=== PATIENT | male | born 1950 | race Caucasian/White ===

== ENCOUNTER 2020-07-15 09:25 | Inpatient (IN) | payer OTHER, MEDICARE, SELFPAY ==
[2020-07-15] VITALS (16 sets, daily range): BP systolic 151–198; BP diastolic 53–77; PULSE 52–69; RESP 11–24; TEMP 36.3–36.5; O2SAT 96–100; BMI 26.2
--- NOTE | ~2020-07-15 | CT_ITS ---
EXAMINATION: CTA brain carotid EXAM DATE: 07/15/2020 11:04 INDICATION: Syncope. Vertigo. Intermittent dizziness. Symptoms for the past week. TECHNIQUE: Noncontrast head CT. Spiral CTA of the carotid arteries was performed with intravenous i njection 100 cc of Omnipaque 350. Axial, coronal, sagittal reformatted images reviewed. Additional r eformatted images created on dedicated 3-D workstation. NASCET comparable standard used to assess th e degree of arterial stenosis. Spiral CT angiogram cerebral arteries performed with the same intrave nous injection of contrast. Source images of the brain CTA transferred to dedicated workstation for 3 -D rotational image creation. Coronal, sagittal maximum intensity pixel images also reviewed. The d ose-length product (DLP) for this examination was 1867.51 mGy-cm. The exposure was tailored accordi ng to patient size, and iterative reconstruction (ASIR) was used as additional dose reduction techniq ue. There is no prior study for comparison. FINDINGS: There is mild to moderate bilateral carotid bulb plaque, accommodated by the bulbs nodule d ilation, 0% stenosis bilaterally. The left vertebral artery is dominant There is right-sided posterio r communicating artery dominant posterior cerebral artery. There is bilateral carotid siphon arterial sclerosis with short segment 50%. There is no carotid or vertebral basilar arterial dissection or f ibromuscular dysplasia. There are no cerebral artery aneurysms. There is symmetric cerebral artery ar borization. The sagittal, transverse and sigmoid sinuses enhance normally, no venous sinus thrombosis . Internal cerebral veins also enhance normally. There is no acute intraparenchymal hemorrhage. No evidence of intraparenchymal brain mass lesion. N o evidence of acute infarction. There is mild periventricular and subcortical hypodensity, nonspecifi c but probably related to small vessel ischemic disease. There is mild prominence of the sulci and ventricles related to cerebral atrophy. There is intracranial carotid arteriosclerosis. There is no mass effect or midline shift. There is no obstructive hydrocephalus suspected. There are no extra -axial collections. There are no calvarial acute fractures. Small to moderate-sized left maxillary sinus mucous retention cyst. IMPRESSION: 1. No acute findings. 2. Bilateral carotid bulb 0% stenosis. 3. Left carotid siphon 50% stenosis. 4. Mild age-related findings. Reviewed, dictated and finalized at location B. LAY OUT WORKER
--- NOTE | 2020-07-15 09:38 | ED.SYNCOPE ---
HPI - Syncope General Chief Complaint: Syncope Stated Complaint: syncope Time Seen by Provider: 07/15/20 09:37 History of Present Illness HPI narrative: 70 yo male presents to the ED for dizziness. He first began feelng dizzy last night. It is primarily with sudden head movement. Also made worse by standing. He had an episode of severe dizziness this morning and believes that that he briefly lost consciousness and fell to the ground. He has noted a swishing noise in his right ear at times. He has never had these symptoms before. Related Data Home Medications Medication Instructions Recorded Confirmed apixaban 5 mg tablet 5 mg PO BID 05/08/19 01/21/20 cholecalciferol (vitamin D3) 25 50 mcg PO DAILY cap 05/29/20 05/29/20 mcg (1,000 unit) capsule metoprolol tartrate 50 mg tablet 50 mg PO BID tablet 05/29/20 05/29/20 Allergies Allergy/AdvReac Type Severity Reaction Status Date / Time No Known Allergies Allergy Mild Verified 07/15/20 10:14 Review of Systems Review of Systems: All systems reviewed & are unremarkable except as noted in HPI and below Constitutional: Constitutional: Denies chills and Denies fever(s) Eyes: Comments: occasional kaleidoscope vision ENT: Reports dizziness and Denies sore throat Cardiovascular: Cardiovascular: Denies chest pain Respiratory: Respiratory: Denies dyspnea Gastrointestinal: Gastrointestinal: Denies abdominal pain and Denies nausea Genitourinary: Genitourinary: Reports no additional male genitourinary complaints Musculoskeletal: Musculoskeletal: Reports no additional musculoskeletal complaints Neurologic: Denies confusion, Reports dizziness, Reports syncope and Denies weakness PMFSH Past Medical History Medical History Chronic kidney disease, stage 3 (moderate) Metabolic syndrome Paroxysmal atrial fibrillation Family History Family History Grandparent Diabetes mellitus Family history of coronary artery disease Mother Family history of glaucoma Hypertension Sibling Hypertension Family history of lymphoma Father Family history of coronary artery disease Family history of cardiovascular disease Social History Social History Smoking status: Heavy tobacco smoker Alcohol intake: current Exam Const: General: no acute distress and alert Orientation/consciousness: patient oriented x3 HENMT: Ears: Abnormal EAC present cerumen impaction bilateral Eyes: Conjunctivae: conjunctivae normal Pupils: Equal, round and reactive pupils present EOM: EOMs intact bilaterally Neck: Neck: normal visual inspection Other: no bruit Chest: Chest palpation & inspection: normal inspection of the chest and no tenderness Resp: Effort & Inspection: normal respiratory effort Auscultation: clear to auscultation bilaterally Cardio: Rate: regular rate Rhythm: regular rhythm GI: Inspection: non-distended Skin: General skin exam: normal color Neuro: General: patient oriented x3, moves all extremities, no focal motor deficits and CN's II-XI intact bilaterally Cranial nerves: Yes Nystagmus present horizontal fast component to the right (minimal) Speech: normal speech Other: Unstable upon standing Extrem: General: normal to inspection Psych: Appearance: grossly normal and well kempt Mental Status: mental status grossly normal Affect: normal affect Attitude: cooperative Thought content: Yes Normal thought content present Course Vital Signs Vital signs: Vital Signs Temperature 36.3 C L 07/15/20 09:35 Pulse Rate 69 07/15/20 09:35 Respiratory Rate 16 07/15/20 09:35 Blood Pressure 170/57 H 07/15/20 09:35 Pulse Oximetry 100 07/15/20 09:35 Temperature 36.3 C L 07/15/20 09:35 Pulse Rate 53 L 07/15/20 14:02 Respiratory Rate 21 H 07/15/20 14:02 Blood Pressure 187/77 H
--- NOTE | 2020-07-15 09:50 | ECG_ITS ---
Measurements Intervals [place] Rate: 61 P: 114 ME: 154 QRS: -41 QRSD: 137 T: 33 QT: 413 QTc: 418 Interpretive Statements SINUS RHYTHM LEFT AXIS DEVIATION RIGHT BUNDLE BRANCH BLOCK BASELINE ARTIFACT- I, III, AVR, AVL, AVF, V1-V6 ABNORMAL ECG Electronically Signed On 07-15-2020 10:13:05 NATURAL RESOURCE OFFICER by Amadou Longoria D.O.
[2020-07-15 10:21] LABS: Basophils Absolute Auto 0.1 K/mm3 (0.0-0.1); Basophils Percent Auto 0.8 % (0.2-1.2); Eosinophils Absolute Auto 0.5 K/mm3 (0-0.3); Eosinophils Percent Auto 3.4 % (0-4.4); Hematocrit 41.7 % (42.0-52.0); Hemoglobin 14.6 g/dL (14.0-18.0); Immature Granulocyte Absolute 0.09 K/mm3 (0.00-0.031); Immature Granulocyte Percent A 0.6 % (0-0.5); Immature Platelet Fraction Pct 16.5 % (0.9-11.2); Lymphocytes Absolute Auto 2.54 K/mm3 (0.9-3.2); Lymphocytes Percent Auto 17.2 % (18.3-44.2); Mean Corpuscular Hemoglobin 31.1 pg (26-34); Mean Corpuscular Volume 88.7 fl (80-100); Mean Platelet Volume 13.4 fl (7.4-10.4); Monocytes Absolute Auto 1.2 K/mm3 (0.1-0.6); Monocytes Percent Auto 7.8 % (2.6-8.5); Neutrophils Absolute Auto 10.4 K/mm3 (1.3-6.7); Neutrophils Percent Auto 70.2 % (45.5-73.1); Platelet Count Result 221 k/mm3 (150-375); Red Cell Distribution Width 13.9 % (11.5-14.5); White Blood Count 14.8 K/mm3 (4.5-10.0)
[2020-07-15 10:29] LABS: INR 1.1; Prothrombin Time 14.3 Seconds (11.1-14.7)
[2020-07-15 10:30] LABS: Partial Thromboplastin Time 32.4 SECONDS (22.3-36.8)
[2020-07-15 10:37] LABS: Alanine Aminotransferase 48 U/L (4-50); Albumin Level 3.7 g/dL (3.5-5.1); Alkaline Phosphatase 76 U/L (38-126); Anion Gap 7 mmol/L (8-16); Aspartate Amino Transferase 40 U/L (17-59); Bilirubin,Total 0.5 mg/dL (0.2-1.3); Blood Urea Nitrogen 12 mg/dL (9-20); Carbon Dioxide 30 mmol/L (22-30); Chloride 100 mmol/L (98-107); Estimated CRCL calculation 61 ml/min; Estimated Glomerular Filt Rate > 60; Glucose 203 mg/dL (75-110); Potassium 3.6 mmol/L (3.4-5.0); Sodium 137 mmol/L (137-145)
--- NOTE | 2020-07-15 10:38 | PC.NURSE ---
Asked pt for urine sample, pt stated he would give me one as soon as he could
[2020-07-15] MEDS: MECLIZINE HCL 25 MG TABLET PO ×2 (11:10→12:31)
[2020-07-15] MEDS: SODIUM CHLORIDE 0.9% IV 1,000 ML 999 ML IV CONT (12:31)
[2020-07-15 12:36] LABS: Add Urine Microscopic? NO; Appearance Urine Clear (Clear); Bilirubin Urine Negative (Negative); Blood Urine Negative (Negative); Color Urine Yellow (Yellow); Glucose Urine UA Negative (Negative); Ketones Urine Negative (Negative); Leukocyte Esterase Ur Negative LEU/UL (Negative); Nitrate Urine Negative (Negative); Protein Urine Negative (Negative); Urobilinogen Urine Negative mg/dL (<2.0)
[2020-07-15] MEDS: AMOXICILLIN/CLAVULANATE K 875-125 MG TAB 1 TABLET PO ×2 (14:51→20:05)
--- NOTE | 2020-07-15 16:20 | ADMGEN ---
This patient, Luis Baltazar, was admitted to Medical Room 345-01. Patient/family oriented to hospital policies and general routines including ID bracelet, bed and alarms, visiting hours, pain management, procedures, bathroom and other care routines, personal items, smoking policy, room service/diet, and visiting hours. Information on how to activate the Rapid Response Team has been discussed. Patient/Family are encouraged to report perceived risks to care and to ask questions if they do not understand what they are told or what they should do.
[2020-07-15 21:59] LABS: Glucose Point of Care 149 (65-105)
[2020-07-16] VITALS (11 sets, daily range): BP systolic 160–184; BP diastolic 56–63; PULSE 55–69; RESP 18; TEMP 35.9–36.4; O2SAT 96–98
--- NOTE | 2020-07-16 00:42 | ECHO_ITS ---
Patient Info Name: Luis Baltazar Age: 70 years : 1950 Gender: Male Ht: 70 in Wt: 183 lbs BSA: 2.04 m2 HR: 64 bpm BP: 160 / 56 mmHg Heart Rhythm: Sinus Rhythm Technical Quality: Poor Exam Date: 07/16/2020 10:50 AM Exam Location: [facility] Pulmonary Exam Room: 345 Patient Status: Inpatient Admit Date: 07/15/2020 Staff Ordering Physician: Mary Becerra PA-C Linux System Administrator: Leonor Araujo RDCS Attending Provider: Ceci Zhu MD Exam Type: CA echo dop color flow w con Study Info Indications - syncope Complete two-dimensional, color flow and Doppler transthoracic echocardiogram is performed with contrast to opacify the left ventricle and to improve the deliniation of the left ventricle endocardial borders. Contrast/Agitated Saline Contrast/Ag. Saline: Definity Amount: 1.00 ml Administered By: aCrlos Cavazos RN Existing IV Access: Yes Reason for Poor Study: patient body habitus Summary 1. Technically difficult study with limited views. 2. Left ventricular systolic function is normal, estimated at 60-65%. 3. There is mildly increased left ventricular wall thickness. 4. The left ventricular diastolic function is grade II diastolic dysfunction. 5. Left atrial chamber dimension is mildly enlarged. 6. There is mild aortic valve stenosis with a peak velocity of 183.00 cm/s, mean gradient of 7 mmHg, and aortic valve area of 1.90 cm2. 7. The aortic valve is not well visualized. 8. There is trace tricuspid valve regurgitation. 9. No pulmonary hypertension, estimated pulmonary arterial systolic pressure is 25 mmHg. Left Ventricle Technically difficult study with limited views. Left ventricular chamber dimension is normal. Left ventricular systolic function is normal, estimated at 60-65%. There is mildly increased left ventricular wall thickness. The left ventricular diastolic function is grade II diastolic dysfunction. Right Ventricle Right ventricular chamber dimension is normal. Right ventricular systolic function is normal. Left Atria Left atrial chamber dimension is mildly enlarged. Right Atria Right atrial chamber dimension is normal. Aortic Valve The aortic valve is not well visualized. There is mild aortic valve stenosis with a peak velocity of 183.00 cm/s, mean gradient of 7 mmHg, and aortic valve area of 1.90 cm2. There is no aortic valve regurgitation. There is mild aortic valve calcification. Pulmonic Valve The pulmonic valve is not well visualized. Mitral Valve The mitral valve has thickened leaflets. There is trace mitral valve regurgitation. The mitral valve annulus is mildly calcified. Tricuspid Valve The tricuspid valve leaflets are normal. There is trace tricuspid valve regurgitation. No pulmonary hypertension, estimated pulmonary arterial systolic pressure is 25 mmHg. Pericardium/Pleural The pericardium appears not well visualized. Inferior Vena Cava Normal inferior vena cava with >50% collapse upon inspiration consistent with normal right atrial pressure, 5 mmHg. Aorta The aortic root size at the sinus of Valsalva is normal. There is mild aortic atherosclerosis. Left Ventricular Outflow Tract Name Value Normal LVOT 2D
[2020-07-16 07:12] LABS: Glucose Point of Care 133 (65-105)
[2020-07-16] MEDS: METOPROLOL TARTRATE 50 MG TAB PO (08:46)
[2020-07-16] MEDS: OMEGA 3 POLYUNSAT FATTY ACIDS 1 GM CAP PO (08:46)
[2020-07-16] MEDS: CHOLECALCIFEROL 1,000 UNITS TABLET 2000 UNITS PO (08:46)
[2020-07-16] MEDS: OPTI-GEN TAB 1 TABLET PO (08:46)
[2020-07-16] MEDS: ATORVASTATIN 10 MG TABLET BY MOUTH (08:48)
[2020-07-16] MEDS: hydroCHLOROthiazide 12.5 MG CAPSULE PO (08:48)
[2020-07-16] MEDS: lisinopriL 20 MG TABLET PO (08:48)
[2020-07-16] MEDS: AMOXICILLIN/CLAVULANATE K 875-125 MG TAB 1 TABLET PO (08:48)
[2020-07-16] MEDS: APIXABAN 5 MG TABLET PO (08:48)
[2020-07-16] MEDS: CARBAMIDE PEROXIDE 6.5% OT SOLN 15 ML BTL 5 DROP EACH EAR (08:49)
[2020-07-16] MEDS: PERFLUTREN LIPID MICROSPHERES 1.5 ML VIAL DILUTED TO 10 ML TOTAL VOLUME IV PUSH (11:22)
--- NOTE | 2020-07-16 11:53 | PC.NURSE ---
On 07/16/20, the student, Gina Cooper ], provided care and completed [employer] documentation on this patient. I have reviewed the student's documentation and agree with the findings.
--- NOTE | 2020-07-16 13:37 | PM.SD2 ---
Same Day Admit/Disch: HPI History of Present Illness Chief complaint: Vertigo Narrative: Luis Baltazar is a 70 year old male admitted with dizziness and syncope. Pt walked outside with his coffee and fell outside blackouted for a few seconds. Denies any seizure activity or focal weakness, chest pain, sob or abdominal pains at that time. Pt denies sob cough or headaches. Pt had ct head which was negative, pt has history of af and was watched on telemetry overnight. Pt felt his head was spinning, and wobbly when walking yesterday, pt was found to have bilateral ear wax in the ED which was washed out yesterday. Pt states his dizziness is better today. Pt seen by neurology who recommends MRI brain which can be done as outpatient. I recommend patient sees ENT as outpatient for vertigo. PMFSH Past Medical History Medical History Chronic kidney disease, stage 3 (moderate) Metabolic syndrome Paroxysmal atrial fibrillation Family History Family History Grandparent Diabetes mellitus Family history of coronary artery disease Mother Family history of glaucoma Hypertension Sibling Hypertension Family history of lymphoma Father Family history of coronary artery disease Family history of cardiovascular disease Social History Social History Smoking packs per day: 0.5 Smoking cigarettes per day: 10.0 Years smoked: 40 Smoking pack-years: 20.00 Smoking status: Current every day smoker Tobacco type: cigarettes Alcohol intake: former Substance use: never Gender identity (if verbalized by the patient): Male Spiritual care concerns: No Same Day Admit/Disch: Med Pre-admit Medications Home Medications Medication Instructions Recorded Confirmed Type apixaban 5 mg tablet 5 mg PO BID 05/08/19 07/15/20 History doxazosin 4 mg tablet 4 mg PO DAILY #90 tablet 02/06/20 07/15/20 Rx metformin 1,000 mg tablet See Rx Instructions .ROUTE 04/24/20 07/15/20 Rx .COMPLEX #90 tablet lisinopril 20 1 tablet PO DAILY #90 tablet 05/07/20 07/15/20 Rx mg-hydrochlorothiazide 12.5 mg tablet cholecalciferol (vitamin D3) 25 50 mcg PO DAILY cap 05/29/20 07/15/20 History mcg (1,000 unit) capsule metoprolol tartrate 50 mg tablet 50 mg PO BID tablet 05/29/20 07/15/20 History atorvastatin 10 mg tablet See Rx Instructions .ROUTE 06/30/20 07/15/20 Rx .COMPLEX #90 tablet amoxicillin-pot clavulanate 1 tablet PO Q12H #20 tablet 07/15/20 Rx [Augmentin] drujonibpdwn-xfuyzety-mvhizm 1 tablet PO DAILY 07/15/20 07/15/20 History [Centrum Silver] omega 4-zbs-rip-fish oil [Fish Oil] 1 cap PO DAILY 07/15/20 07/15/20 History Exam Const: General: well developed Nutritional Appearance: well nourished HENMT: Head: normocephalic Eyes: General: appearance normal, both eyes and all related structures Pupils: Equal, round and reactive pupils present Neck: Neck: supple Chest: Chest palpation & inspection: normal inspection of the chest Resp: Effort & Inspection: normal respiratory effort Auscultation: clear to auscultation bilaterally Cardio: Jugular venous distension: no JVD Rhythm: regular rhythm Heart sounds: S1 normal heart sound present and S2 normal heart sound present GI: Inspection: normal to inspection GI Palp: No abdominal tenderness, Yes Soft to palpation and No Tenderness to palpation present (GI) Auscultation: normal bowel sounds : General: Yes no CVA tenderness Back/Spine/Pelvis: Back: no CVA tenderness Skin: General skin exam: normal color and dry skin Neuro: Cranial nerves: Yes CN's II-XII intact bilaterally and Yes Equal, round and reactive pupils present Cognition (Neuro): normal cognition Speech: normal speech Motor exam (neuro): 5/5 motor strength present throughout Extrem: General: normal to inspection Psych: Appe
--- NOTE | 2020-07-16 14:37 | WPDNEURCNPN ---
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 considering history of atrial fibrillation patient was admitted and evaluated with the general physical exam and neurological examination at this stage is nonfocal otherwise he is already taking the medications accordingly and will be discharged with instruction to return to the office for the follow-up Consult date: 07/16/20 Time Seen: 11:00 HPI: Luis Baltazar is a 70 year old male admitted to the hospital for the complaints of syncopal episode with dizziness reportedly patient walked outside with his coffee and fell and back out for few sec no seizure activity was noted and subsequently no focal weakness was documented at that particular time is head was spinning he was reportedly wobbly day before when walking and has had bilateral ear wax taken out in the emergency room, does have ongoing history of chronic state kidney disease stage 3 with metabolic syndrome and paroxysmal atrial fibrillation, is smoking cigarettes per day 10 with years smoked 40 current everyday smoker former alcohol drinker, and medications include apixaban 5 mg twice a day metformin 1000 daily lisinopril 20 mg daily with hydrochlorothiazide 12.5 mg in addition to atorvastatin 10 mg daily and Augmentin 1 tablet every 12 hours, head neck CTA left carotid siphon 50% stenosis but bilateral carotid bulbs 0% stenosis and routine lab with mild leukocytosis Review of Systems Review of Systems: All systems reviewed & are unremarkable except as noted in HPI and below PMFSH Past Medical History Medical History Chronic kidney disease, stage 3 (moderate) Metabolic syndrome Paroxysmal atrial fibrillation Family History Family History Grandparent Diabetes mellitus Family history of coronary artery disease Mother Family history of glaucoma Hypertension Sibling Hypertension Family history of lymphoma Father Family history of coronary artery disease Family history of cardiovascular disease Social History Social History Smoking packs per day: 0.5 Smoking cigarettes per day: 10.0 Years smoked: 40 Smoking pack-years: 20.00 Smoking status: Current every day smoker Tobacco type: cigarettes Alcohol intake: former Substance use: never Gender identity (if verbalized by the patient): Male Spiritual care concerns: No Meds Home Medications and Allergies Home Medications Medication Instructions Recorded Confirmed Type apixaban 5 mg tablet 5 mg PO BID 05/08/19 07/15/20 History doxazosin 4 mg tablet 4 mg PO DAILY #90 tablet 02/06/20 07/15/20 Rx metformin 1,000 mg tablet See Rx Instructions .ROUTE 04/24/20 07/15/20 Rx .COMPLEX #90 tablet lisinopril 20 1 tablet PO DAILY #90 tablet 05/07/20 07/15/20 Rx mg-hydrochlorothiazide 12.5 mg tablet cholecalciferol (vitamin D3) 25 50 mcg PO DAILY cap 05/29/20 07/15/20 History mcg (1,000 unit) capsule metoprolol tartrate 50 mg tablet 50 mg PO BID tablet 05/29/20 07/15/20 History atorvastatin 10 mg tablet See Rx Instructions .ROUTE 06/30/20 07/15/20 Rx .COMPLEX #90 tablet amoxicillin-pot clavulanate 1 tablet PO Q12H #20 tablet 07/15/20 Rx [Augmentin] aiaxgwtwznel-litsxvgr-xphgiu 1 tablet PO DAILY 07/15/20 07/15/20 History omega 4-yio-dox-fish oil [Fish Oil] 1 cap PO DAILY 07/15/20 07/15/20 History amoxicillin-pot clavulanate 1 tablet PO Q12HR #20 tablet 07/16/20 Rx [Augmentin] carbamid
== END 2020-07-16 15:03 | disposition home or self-care (01) | DRG 149 ==
LOC: ANHED 14:37 → ANH3MED 15:47
PROVIDERS: Admitting Provider Family Medicine; Emergency Provider Emergency Medicine; PCP Family Medicine; Visit Provider Family Medicine
DX: R42 Dizziness and giddiness (principal); E11.22 Type 2 diabetes mellitus with diabetic chronic kidney disease; N18.30 Chronic kidney disease, stage 3 unspecified; E88.81 Metabolic syndrome and other insulin resistance; I48.0 Paroxysmal atrial fibrillation; R55 Syncope and collapse; H66.90 Otitis media, unspecified, unspecified ear; H60.90 Unspecified otitis externa, unspecified ear; H61.23 Impacted cerumen, bilateral; F17.210 Nicotine dependence, cigarettes, uncomplicated; Z79.01 Long term (current) use of anticoagulants; Z79.899 Other long term (current) drug therapy
CPT/HCPCS: 36415; 70496; 70498; 80053; 81003; 82948; 85025; 85055; 85610; 85730; 93005; 96361; 96374; 99285; A9270; C8929; G0378; J7030; Q9957; Q9967

== ENCOUNTER 2020-07-23 08:33 | Outpatient (CLI) | payer OTHER, SELFPAY | END 2020-07-23 08:34 | disposition home or self-care (01) | LOC: ANHCOVIDVC 08:33 | PROVIDERS: PCP Family Medicine | DX: Z23 Encounter for immunization (principal) | CPT/HCPCS: 0001A; 91300 ==

== ENCOUNTER 2020-07-25 06:34 | Outpatient (CLI) | payer OTHER, SELFPAY ==
--- NOTE | ~2020-07-25 | MR_ITS ---
EXAMINATION: MR brain/brain stem wo con DATE: 07/25/2020 07:17 INDICATION: Dizziness. TECHNIQUE: Magnetic resonance imaging (MRI) of the brain and brainstem was performed without intraven ous contrast. Sequences included sagittal T1-weighted FSE, axial diffusion-weighted FS EPI, and axial T2*-weighted GRE. The patient refused additional imaging. Apparent diffusion coefficient (ADC) maps were created. COMPARISON: Head CTA 07/15/2020 FINDINGS: There is no intracranial hemorrhage, acute infarction, or abnormal intracranial mass lesion . There are scattered areas of nonspecific increased T2-weighted signal intensity in the cerebral whi te matter. The ventricles are normal in size. There is a mucous retention cyst in left maxillary sinu s. There is a small right mastoid effusion. IMPRESSION: 1. Mild nonspecific cerebral white matter disease, which likely represents chronic small vessel ische aamir disease. Reviewed, dictated and finalized at location A. BUILDER HELPER IMPRESSION: 1. 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
== END 2020-07-25 06:35 | disposition home or self-care (01) ==
PROVIDERS: PCP Family Medicine; Visit Provider Psychiatry & Neurology Neurology
DX: R42 Dizziness and giddiness (principal); R93.0 Abnormal findings on diagnostic imaging of skull and head, not elsewhere classified
CPT/HCPCS: 70551

== ENCOUNTER 2020-08-04 12:27 | Outpatient (RCR) | payer OTHER, SELFPAY ==
--- NOTE | 2020-08-04 13:26 | PTOPEVAL ---
PHYSICAL THERAPY EVALUATION AND PLAN OF CARE 08-04-20 Thank you for referring Luis Baltazar to [facility], for the diagnosis of vertigo.? Luis has improved and has not had any dizziness for the past 10 days. The evaluation was completed and education was provided. He will call if he has any additional questions, or if dizziness returns and he needs treatment, to call for appointment. The plan of care is for? 0-2 x/week for 4 weeks. Please review, sign, date and return this plan of care [facility]. I agree with and certify that the following plan of care is medically necessary. Referring Physician Date Referring Provider: Hiren Sethi MD *PT Outpatient Evaluation Document 08/04/20 12:30 SONIA (Rec: 08/04/20 13:26 SONIA [id number]) Past Medical History Source of Past Medical History Recalled from Previous Visit, Confirmed with Patient/Family Neurological History Hx Neurological Disorders No Significant History Cardiovascular History Hx Atrial Fibrillation Yes Hx Cardiac Surgery Yes: ablation. 2014 Hx Hypercholesterolemia Yes: meds Hx Hypertension Yes: meds Respiratory History Hx Other Respiratory Disorders Yes: SMOKER; sinus drainage- seasonal allergies Gastrointestinal History Hx Cholecystectomy Yes: 1985 Genitourinary History Hx Renal Disease Yes: STAGE III Musculoskeletal History Hx Arthritis Yes: neck and back Hx Orthopedic Surgery Yes: R ankle ORIF Hx Other Musculoskeletal Disorders Yes: R knee pain Hematological History Hx Hematological Disorders No Significant History Endocrine History Hx Diabetes Yes: meds HEENT History Hx HEENT Disorders No Significant History Integumentary History Hx Skin Disorders No Significant History Reproductive History Hx Reproductive Disorders No Significant History Psychosocial History Hx Psychiatric Disorders No Significant History Pain History History of Any Previous or Ongoing No Significant History Instance of Pain Anesthesia History Hx Anesthesia Reactions No Significant History Evaluation Information Problem Diagnosis vertigo/dizziness Onset 07-16-20 Prior Level of Function Activity Level (Last 3 Months) 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
--- NOTE | 2020-09-15 13:45 | PCPTNOTE ---
PHYSICAL THERAPY DISCHARGE 09-15-20 Attending Provider: Hiren Sethi MD Patient:Luis Baltazar Date of :1950 Luis has not returned for any further treatments since the PT evaluation on 08/04/2020, for the diagnosis of dizziness; therefore he will be discharged at this time. Thank you for referring Mr. Baltazar to [facility]. Please review, sign, date and return this discharge summary [facility]. I have been updated about the patient's current status and I agree with discharge from the above service at this time. Referring Physician Date
== END 2020-09-16 09:02 | disposition home or self-care (01) ==
LOC: ANHPT 12:27
PROVIDERS: PCP Family Medicine; Referring Provider Otolaryngology; Visit Provider Otolaryngology
DX: R42 Dizziness and giddiness (principal); H61.22 Impacted cerumen, left ear
CPT/HCPCS: 97161

== ENCOUNTER 2020-08-13 08:01 | Outpatient (CLI) | payer OTHER, SELFPAY | END 2020-08-13 08:02 | disposition home or self-care (01) | LOC: ANHCOVIDVC 08:01 | PROVIDERS: PCP Family Medicine | DX: Z23 Encounter for immunization (principal) | CPT/HCPCS: 0002A; 91300 ==

== ENCOUNTER 2021-04-27 10:20 | Emergency (ER) | payer OTHER, SELFPAY ==
--- NOTE | ~2021-04-27 | XR_ITS ---
EXAMINATION: XR chest 2V DATE: 04/27/2021 11:15 INDICATION: Cough TECHNIQUE: PA and lateral views of the chest were obtained. COMPARISON: Chest radiograph dated 01/25/2018 FINDINGS: Right middle lobe opacity which could represent atelectasis or pneumonia. Left lung is now clear. No pulmonary edema, pleural effusion or pneumothorax. Arch size is normal. Mild thoracic spondylosis. IMPRESSION: 1. Right middle lobe opacity suspicious for pneumonia with differential including atelectasis. Reviewed, dictated and finalized at location B. ICAL MANAGER IMPRESSION: 1. Right middle lobe opacity suspicious for pneumonia with differential includi ng atelectasis.
[2021-04-27 10:38] VITALS: BP 181/55; PULSE 75; RESP 18; TEMP 36.1; O2SAT 96
--- NOTE | 2021-04-27 11:12 | ED.URI ---
HPI - URI/Sore Throat General Chief Complaint: Upper Respiratory Infection Stated Complaint: SINUS CONGESTION/DRAINAGE/COUGH Time Seen by Provider: 04/27/21 11:05 Source: patient, RN notes reviewed and old records reviewed Mode of arrival: ambulatory Limitations: no limitations History of Present Illness HPI Narrative: 71-year-old male who presents to [facility] with complaints of cough, nasal drainage and is unable to hear from his right ear for the past3-4 days. Patient reports that he had similar symptoms about a month ago which seemed to resolve. Patient reports that he has not taken anything OTC for his symptoms states he is afraid to take something that might interact with his medications. Patient states that his nasal drainage is clear and when he coughs he does bring up some white mucous at times. Patient denies any known fevers, chills or sweats denies any body aches has had his COVid vaccinations. MD elicited complaint: cough, rhinorrhea and other (Right ear decreased hearing) Related Data Home Medications Medication Instructions Recorded Confirmed apixaban 5 mg tablet 5 mg PO BID 05/08/19 04/27/21 cholecalciferol (vitamin D3) 25 50 mcg PO DAILY cap 05/29/20 04/27/21 mcg (1,000 unit) capsule metoprolol tartrate 50 mg tablet 50 mg PO BID tablet 05/29/20 04/27/21 cegsioektvow-avmferwa-sjbaho 1 tablet PO DAILY 07/15/20 04/27/21 omega 7-oac-ubr-fish oil [Fish Oil] 1 cap PO DAILY 07/15/20 04/27/21 Allergies Allergy/AdvReac Type Severity Reaction Status Date / Time No Known Allergies Allergy Mild Verified 02/16/21 10:06 Review of Systems Review of Systems: CONSTITUTIONAL: Denies known fever, chills, or sweats. EYES: Denies visual changes, redness, or discharge. ENT: Positive for rhinorrhea, congestion,no sore throat,right ear otalgia. CARDIOVASCULAR: Denies chest pain, palpitations, or edema. RESPIRATORY: Positive for cough reports dyspnea with cough or exertion, no tachypnea SAO2 96% on rick air GASTROINTESTINAL: Denies abdominal pain, nausea, vomiting, or diarrhea. GENITOURINARY: Denies dysuria or hematuria. SKIN: Denies rash or itching. MUSCULOSKELETAL: reports arthritis with some chronic neck and back discomfort,no joint pain, no body aches NEUROLOGIC: Denies headache, numbness, or weakness. PSYCHIATRIC: Denies anxiety or depression. All systems reviewed & are unremarkable except as noted in HPI and below PMFSH Past Medical History Medical History (Updated 04/27/21 @ 15:12 by Maria R German NP) Chronic kidney disease, stage 3 (moderate) Diverticulitis Elevated cholesterol Hypertension Metabolic syndrome Paroxysmal atrial fibrillation Surgical History Surgical History (Updated 04/27/21 @ 15:17 by Maria R German NP) History of cholecystectomy History of meniscectomy of right knee Family History Family History Grandparent Diabetes mellitus Family history of coronary artery disease Mother Family history of glaucoma Hypertension Sibling Hypertension Family history of lymphoma Father Family history of coronary artery disease Family history of cardiovascular disease Social History Social History Smoking packs per day: 0.5 Smoking cigarettes per day: 10.0 Years smoked: 40 Smoking pack-years: 20.00 Smoking status: Current every day smoker Tobacco type: cigarettes Alcohol intake: former Substance use: never Gender identity (if verbalized by the patient): Male Spiritual care concerns: No Comments At time of signature, agree with nursing past medical, surgical, social and family history. There is no relevant family history pertinent to the presenting complaint Exam Narrative: GENERAL: Well-appearing, well-nourished, and in no acute distress. HEAD: Normocephalic, atraumatic. EYES: PERRLA and EOMI. ENT: Nares red with clear nasal rhinorrhea no epistaxis
== END 2021-04-27 11:52 | disposition home or self-care (01) ==
PROVIDERS: Emergency Provider Registered Nurse; PCP Family Medicine
DX: J18.9 Pneumonia, unspecified organism (principal); I12.9 Hypertensive chronic kidney disease with stage 1 through stage 4 chronic kidney disease, or unspecified chronic kidney disease; N18.30 Chronic kidney disease, stage 3 unspecified; I48.0 Paroxysmal atrial fibrillation; F17.210 Nicotine dependence, cigarettes, uncomplicated
CPT/HCPCS: 71046; 99213; G0463

== ENCOUNTER → 2021-07-09 09:38 | Outpatient (CLI) | payer OTHER, SELFPAY ==
--- NOTE | ~2021-07-09 | XR_ITS ---
XR chest 2V DATE: 07/09/2021 09:53 INDICATION: Pneumonia TECHNIQUE: 2 views COMPARISON: 04/27/2021 2 view chest FINDINGS: Bilateral hyperinflation. No pulmonary infiltrate or consolidation, pleural effusion or pul monary vascular congestion or pneumothorax. Normal heart size. No hilar or mediastinal enlargement. There is aortic arch calcification. Included skeletal structures are unremarkable other than degenerative spurring of the thoracic spine. . IMPRESSION: Bilateral hyperinflation; no active cardiopulmonary disease Reviewed, dictated and finalized at location B. TIC MIXER
== END ==
PROVIDERS: PCP Family Medicine; Visit Provider Physician Assistant
DX: J18.9 Pneumonia, unspecified organism (principal)
CPT/HCPCS: 71046

== ENCOUNTER 2021-07-23 15:45 | Emergency (ER) | payer OTHER, SELFPAY ==
[2021-07-23 15:50] VITALS: BP 196/57; PULSE 67; RESP 16; TEMP 36.1; O2SAT 99
--- NOTE | 2021-07-23 15:55 | ED.SKABFB ---
HPI - Skin/Abscess/Foreign Bdy General Chief complaint: Skin/Abscess/Foreign Body Stated complaint: CYST ON BACK Time Seen by Provider: 07/23/21 15:47 Source: patient Mode of arrival: ambulatory Limitations: no limitations History of Present Illness HPI narrative: Mr. Baltazar is a 71-year-old male patient presenting to the clinic today with complaints of a possible cyst to his mid upper back. He states that this has been there x3 months. He noticed the last couple days that it has been draining after using warm compresses. He denies any fever or chills. Denies any history of sebaceous cyst or abscesses in the past. Related Data Home Medications Medication Instructions Recorded Confirmed apixaban 5 mg tablet 5 mg PO BID 05/08/19 07/23/21 cholecalciferol (vitamin D3) 25 50 mcg PO DAILY cap 05/29/20 07/23/21 mcg (1,000 unit) capsule metoprolol tartrate 50 mg tablet 50 mg PO BID tablet 05/29/20 07/23/21 [id number]-fdhyujsa-evgkqm 1 tablet PO DAILY 07/15/20 07/23/21 omega 3-kns-yyv-fish oil [Fish Oil] 1 cap PO DAILY 07/15/20 07/23/21 lactobacillus combination no.8 1 cell PO DAILY 07/23/21 07/23/21 [Adult Probiotic] Allergies Allergy/AdvReac Type Severity Reaction Status Date / Time No Known Allergies Allergy Mild Verified 07/23/21 15:49 Review of Systems Review of Systems: Pertinent positives per HPI. Patient denies any fever, chills, rash, headache, visual changes, dizziness, cough, runny nose, sore throat, shortness of breath, chest pain, palpitations, nausea, vomiting, diarrhea, constipation, abdominal pain, or any urinary issues. [facility] Past Medical History Medical History (Updated 07/23/21 @ 16:07 by Braden Lorenzana APRN) Chronic kidney disease, stage 3 (moderate) Diverticulitis Elevated cholesterol Hepatitis C antibody test negative (07/11/17) Hypertension Metabolic syndrome Paroxysmal atrial fibrillation Surgical History Surgical History History of cholecystectomy History of meniscectomy of right knee Family History Family History Grandparent Diabetes mellitus Family history of coronary artery disease Mother Family history of glaucoma Hypertension Sibling Hypertension Family history of lymphoma Father Family history of coronary artery disease Family history of cardiovascular disease Social History Social History Smoking packs per day: 0.5 Smoking cigarettes per day: 10.0 Years smoked: 40 Smoking pack-years: 20.00 Smoking status: Current every day smoker Tobacco type: cigarettes Additional smoking assessment comments: Pt. stopped smoking 10 days ago. Alcohol intake: former Substance use: never Gender identity (if verbalized by the patient): Male Spiritual care concerns: No Comments At the time of my signature, I reviewed and agree with the nursing past medical, surgical, social, and family history. There is no relevant family history pertinent to the patient complaint. Exam Narrative: General: Well-developed, well nourished, in no apparent distress Cardio: Regular rate and rhythm, s1 and s2 normal, no murmur appreciated. Resp: Clear to auscultation bilaterally, no rhonchi, rales, wheezing or rubs. Integumentary: [place], warm, and dry, intact, fluctuant cyst with surrounding redness measuring approximately 4 cm x 3 cm. No tenderness to palpation. Warm to touch Course Course Emergency Course: Portions of this record may have been created with voice recognition software. Level of Care: Express Care Visit Vital Signs Vital signs: Vital signs reviewed Procedures Abscess I/D back: Date of Incision: 07/23/21 Time of Incision: 16:25 Local Anesthetic: lidocaine 1% and with epi Amount of anesthesia used (mL): 3 Technique: incised with #11 blade [place]
[2021-07-23 16:05] VITALS: BP 180/66
== END 2021-07-23 16:43 | disposition home or self-care (01) ==
PROVIDERS: Emergency Provider Nurse Practitioner Family; PCP Family Medicine
DX: L72.3 Sebaceous cyst (principal); Z87.891 Personal history of nicotine dependence; I12.9 Hypertensive chronic kidney disease with stage 1 through stage 4 chronic kidney disease, or unspecified chronic kidney disease; N18.30 Chronic kidney disease, stage 3 unspecified; E78.00 Pure hypercholesterolemia, unspecified; E88.81 Metabolic syndrome and other insulin resistance; I48.0 Paroxysmal atrial fibrillation
CPT/HCPCS: 10061; 87070; 87205; 99213; G0463

== ENCOUNTER 2021-07-27 10:14 | Emergency (ER) | payer OTHER, SELFPAY ==
--- NOTE | 2021-07-27 10:22 | ED.SKABFB ---
HPI - Skin/Abscess/Foreign Bdy General Chief complaint: Wound/Laceration Stated complaint: Recheck on Cyst Time Seen by Provider: 07/27/21 10:45 Source: patient and RN notes reviewed Mode of arrival: ambulatory Limitations: no limitations History of Present Illness HPI narrative: 71-year-old male presents for reevaluation of an abscess that he had drained in this clinic on . He reports he took the bandage off and the packing came out. Reports since then he has had purulent drainage from the area. He reports some tenderness to touch. He denies fever, body aches, chills, sweats. He reports he has been taking the antibiotic as directed. He reports he has been using Neosporin and a bandage. MD complaint: abscess/boil Related Data Home Medications Medication Instructions Recorded Confirmed apixaban 5 mg tablet 5 mg PO BID 05/08/19 07/27/21 cholecalciferol (vitamin D3) 25 50 mcg PO DAILY cap 05/29/20 07/27/21 mcg (1,000 unit) capsule metoprolol tartrate 50 mg tablet 50 mg PO BID tablet 05/29/20 07/27/21 kfipwfcrtcnc-xtszkgmu-poueuc 1 tablet PO DAILY 07/15/20 07/27/21 omega 3-tri-xmj-fish oil [Fish Oil] 1 cap PO DAILY 07/15/20 07/27/21 lactobacillus combination no.8 1 cell PO DAILY 07/23/21 07/27/21 [Adult Probiotic] Allergies Allergy/AdvReac Type Severity Reaction Status Date / Time No Known Allergies Allergy Mild Verified 07/27/21 10:37 Review of Systems Review of Systems: CONSTITUTIONAL: Denies malaise, chills, sweats, or fever. EYES: Denies redness, or discharge. ENT: Denies rhinorrhea, congestion, swollen lips, swollen tongue CARDIOVASCULAR: Denies chest pain, palpitations, or edema. RESPIRATORY: Denies cough or dyspnea. GASTROINTESTINAL: Denies abdominal pain, nausea, vomiting SKIN: Reports drainage from an abscess that was drained 5 days ago. Reports mild tenderness to the area. MUSCULOSKELETAL: Denies joint pain or myalgia. NEUROLOGIC: Denies headache. All systems reviewed & are unremarkable except as noted in HPI and below PMFSH Past Medical History Medical History (Updated 07/27/21 @ 11:13 by Jaleesa Cuenca NP) Chronic kidney disease, stage 3 (moderate) Diverticulitis Elevated cholesterol Hepatitis C antibody test negative (07/11/17) Hypertension Metabolic syndrome Paroxysmal atrial fibrillation Surgical History Surgical History History of cholecystectomy History of meniscectomy of right knee Family History Family History Grandparent Diabetes mellitus Family history of coronary artery disease Mother Family history of glaucoma Hypertension Sibling Hypertension Family history of lymphoma Father Family history of coronary artery disease Family history of cardiovascular disease Social History Social History Smoking packs per day: 0.5 Smoking cigarettes per day: 10.0 Years smoked: 40 Smoking pack-years: 20.00 Smoking status: Current every day smoker Tobacco type: cigarettes Additional smoking assessment comments: Pt. stopped smoking 10 days ago. Alcohol intake: former Substance use: never Gender identity (if verbalized by the patient): Male Spiritual care concerns: No Comments At time of signature, agree with nursing past medical, surgical, social and family history. There is no relevant family history pertinent to the presenting complaint Exam Narrative: GENERAL: Well-appearing, well-nourished, and in no acute distress. HEAD: Normocephalic, atraumatic. EYES: PERRLA ENT: Mucous membranes moist. NECK: Supple. No lymphadenopathy CHEST: Clear to auscultation. No respiratory distress. HEART: Regular rate and rhythm. SKIN: Warm, dry. 3 cm raised erythematous and indurated area to the mid upper back with a 0.5 cm gaping incision, yellow tissue bed surrounding the incision with purulent d
[2021-07-27 10:32] VITALS: BP 177/63; PULSE 79; RESP 16; TEMP 36.1; O2SAT 98
== END 2021-07-27 11:18 | disposition home or self-care (01) ==
PROVIDERS: Emergency Provider Nurse Practitioner; PCP Family Medicine
DX: L02.212 Cutaneous abscess of back [any part, except buttock and flank] (principal); L03.312 Cellulitis of back [any part except buttock and flank]; E78.00 Pure hypercholesterolemia, unspecified; I12.9 Hypertensive chronic kidney disease with stage 1 through stage 4 chronic kidney disease, or unspecified chronic kidney disease; N18.30 Chronic kidney disease, stage 3 unspecified; E88.81 Metabolic syndrome and other insulin resistance; I48.0 Paroxysmal atrial fibrillation; Z87.891 Personal history of nicotine dependence
CPT/HCPCS: 99213; G0463

== ENCOUNTER 2021-11-19 19:33 | Emergency (ER) | payer OTHER, SELFPAY ==
[2021-11-19 19:40] VITALS: BP 137/69; PULSE 77; RESP 16; TEMP 36.5; O2SAT 97
[2021-11-19 19:46] VITALS: BP 137/69; PULSE 77; RESP 16; TEMP 36.5; O2SAT 97
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
== END 2021-11-19 20:02 | disposition home or self-care (01) ==
PROVIDERS: Emergency Provider Nurse Practitioner
DX: S51.011A Laceration without foreign body of right elbow, initial encounter (principal); V43.62XA Car passenger injured in collision with other type car in traffic accident, initial encounter; I12.9 Hypertensive chronic kidney disease with stage 1 through stage 4 chronic kidney disease, or unspecified chronic kidney disease; N18.30 Chronic kidney disease, stage 3 unspecified; E78.00 Pure hypercholesterolemia, unspecified; E88.81 Metabolic syndrome and other insulin resistance; I48.0 Paroxysmal atrial fibrillation; Z87.891 Personal history of nicotine dependence
CPT/HCPCS: 99212; G0463

== ENCOUNTER 2022-04-27 10:18 | Emergency (ER) | payer OTHER, SELFPAY ==
--- NOTE | ~2022-04-27 | XR_ITS ---
XR chest 2V DATE: 04/27/2022 10:37 INDICATION: Cough, crackles TECHNIQUE: 2 views COMPARISON: July 09, 2021 2 view chest FINDINGS: Normal heart size. No hilar or mediastinal enlargement. Aortic arch calcification. Mild discoid atelectasis in the lateral left lower lung. The lungs are clear of infiltrate or consoli dation. No pleural effusion or pulmonary vascular congestion or pneumothorax. Osteopenia. Degenerative spurring of the thoracic spine. IMPRESSION: Minimal discoid atelectasis in the lateral left lower lung; no active cardiopulmonary dis ease is noted otherwise Aortic calcification. Reviewed, dictated and finalized at location B. TING PRESS OPERATOR IMPRESSION: Minimal discoid atelectasis in the lateral left lower lung; no acti ve cardiopulmonary disease is noted otherwise Aortic calcification.
--- NOTE | 2022-04-27 10:24 | ED.URI ---
HPI - URI/Sore Throat General Chief Complaint: Upper Respiratory Infection Stated Complaint: cough, rt ear clogged, sinus drainage Time Seen by Provider: 04/27/22 10:24 Source: patient and RN notes reviewed History of Present Illness HPI Narrative: Patient is a 72-year-old male who presents to urgent care with complaints of cough for 1 week which did get better yesterday and now it is more productive. Clogged right ear and sinus drainage. Patient denies any fevers, shortness of breath, chest pain. Patient has seen his physician in the past for this type of ?sinus infection? and she recommended lkxa-uqh-ittaojn medication. Patient does have a history of pneumonia. No other acute complaints. Acute distress noted. Patient aware of the plan of care. Some parts of this dictation were generated by voice recognition software and may contain typographical and/or grammatical inaccuracies. Related Data Home Medications Medication Instructions Recorded Confirmed apixaban 5 mg tablet (Eliquis) 5 mg PO BID 05/08/19 03/01/22 cholecalciferol (vitamin D3) 25 50 mcg PO DAILY 05/29/20 03/01/22 mcg (1,000 unit) capsule metoprolol tartrate 50 mg tablet 50 mg PO BID 05/29/20 03/01/22 kalbqslufedv-izyhvevi-twjkxb tablet 1 tablet PO DAILY 07/15/20 03/01/22 omega 4-xie-ldq-fish oil 1,000 mg 1 cap PO DAILY 07/15/20 03/01/22 (120 mg-180 mg) capsule (Fish Oil) Allergies Allergy/AdvReac Type Severity Reaction Status Date / Time No Known Allergies Allergy Mild Verified 04/27/22 10:27 Review of Systems Review of Systems: CONSTITUTIONAL: Denies fever, chills, or sweats. EYES: Denies visual changes, redness, or discharge. ENT: Reports of sinus drainage, congestion and right ear clogged CARDIOVASCULAR: Denies chest pain, palpitations, or edema. RESPIRATORY: Reports a productive cough without dyspnea GASTROINTESTINAL: Denies abdominal pain, nausea, vomiting, or diarrhea. GENITOURINARY: Denies dysuria or hematuria. SKIN: Denies rash or itching. MUSCULOSKELETAL: Denies back pain, joint pain, or myalgia. NEUROLOGIC: Denies headache, numbness, or weakness. PSYCHIATRIC: Denies anxiety or depression. All other systems reviewed are negative, except as documented in HPI. [facility] Past Medical History Medical History Chronic kidney disease, stage 3 (moderate) Diverticulitis Elevated cholesterol Hepatitis C antibody test negative (07/11/17) Hypertension Metabolic syndrome Paroxysmal atrial fibrillation Surgical History Surgical History History of cholecystectomy History of meniscectomy of right knee Family History Family History Grandparent Diabetes mellitus Family history of coronary artery disease Mother Family history of glaucoma Hypertension Sibling Hypertension Family history of lymphoma Father Family history of coronary artery disease Family history of cardiovascular disease Social History Social History Smoking packs per day: 0.5 Smoking cigarettes per day: 10.0 Years smoked: 40 Smoking pack-years: 20.00 Smoking status: Current every day smoker Tobacco type: cigarettes Additional smoking assessment comments: Pt. stopped smoking 10 days ago. Alcohol intake: former Substance use: never Gender identity (if verbalized by the patient): Male Spiritual care concerns: No Comments At the time of my signature, I reviewed and agree with the nursing past medical, surgical, social, and family history. There is no relevant family history pertinent to the patient complaint. Exam Narrative: GENERAL: This is a well-nourished, well-developed patient, in no apparent distress. HEAD: normocephalic, atraumatic. EYES: PERRL. Sclera clear/white. Vision is grossly intact. EARS: External ears
[2022-04-27 10:28] VITALS: BP 116/57; PULSE 87; RESP 16; TEMP 36.4; O2SAT 95
== END 2022-04-27 10:53 | disposition home or self-care (01) ==
PROVIDERS: Emergency Provider Nurse Practitioner Family
DX: J32.9 Chronic sinusitis, unspecified (principal); Z87.891 Personal history of nicotine dependence; I12.9 Hypertensive chronic kidney disease with stage 1 through stage 4 chronic kidney disease, or unspecified chronic kidney disease; N18.30 Chronic kidney disease, stage 3 unspecified; E78.00 Pure hypercholesterolemia, unspecified; E88.81 Metabolic syndrome and other insulin resistance; I48.0 Paroxysmal atrial fibrillation
CPT/HCPCS: 71046; 99213; G0463

== ENCOUNTER 2023-08-29 07:36 | Outpatient (CLI) | payer OTHER, SELFPAY ==
--- NOTE | ~2023-08-29 | CT_ITS ---
CT Scan of the Chest without Contrast: Clinical Indication: Lung cancer screening, nicotine dependence Technique: Contiguous sections were acquired throughout the chest without intravenous contrast. Dose reduction technique was used on this scan by utilizing automated exposure control and iterative recon struction technique. The dose-length product (DLP) was 96.88 mGy-cm. Findings: There is no evidence of any significant mediastinal, hilar or axillary lymphadenopathy. There are ath erosclerotic calcifications of the aorta and coronary arteries. There is no evidence of pleural or pericardial effusion. There is a 10 mm groundglass nodule in the left lower lobe (axial image 110).. There is mild emphysem a. Images through the upper abdomen reveal splenomegaly, partially imaged. Impression: Lung RADS 2-S: Benign appearance. 12 month follow-up screening CT advised. Splenomegaly, partially imaged, of uncertain etiology. Reviewed, dictated and finalized at [facility]. Impression: Lung RADS 2-S: Benign appearance. 12 month follow-up screening CT advised. Splenomegaly, partially imaged, of uncertain etiology.
--- NOTE | ~2023-08-29 | US_ITS ---
EXAMINATION: US arterial ankle brachial ind DATE: 08/29/2023 09:07 INDICATION: Peripheral vascular disease with claudication TECHNIQUE: Segmental pressures and plethysmographic and Doppler waveforms of the brachial and lower e xtremity arteries were obtained. COMPARISON: None. FINDINGS: Right and left brachial artery pressures of 144 mm Hg and 142 mm Hg, respectively, are concordant (no rmal difference <= 30 mmHg). The right ankle-brachial index (LILIAM) is 0.32 (normal >= 0.9-1.0). The right great toe-brachial index (TBI) is unable to be assessed due to no discernible dopplerable pulse (normal >= 0.65). Tardus at pa rvus arterial waveforms with broadened systolic peak and delayed upstroke at the right posterior tibi al artery. No discernible waveform identified at the right dorsalis pedis artery. The left LILIAM is 0.62. The left TBI is 0.33. Arterial Doppler waveforms are monophasic but with brisk systolic upstrokes at both left posterior tibial and dorsalis pedis arteries. IMPRESSION: 1. Severe arterial occlusive disease to the right lower limb with severely decreased right LILIAM, parvu s and tardus waveform at the right posterior tibial artery and no dopplerable pulse at the right post erior tibial artery or right great toe. 2. Moderate arterial occlusive disease to the left lower limb with moderately decreased left LILIAM and TBI. Reviewed, dictated and finalized at location B. IMPRESSION: 1. Severe arterial occlusive disease to the right lower limb with severely decr eased right LILIAM, parvus and tardus waveform at the right posterior tibial arter y and no dopplerable pulse at the right posterior tibial artery or right great toe. 2. Moderate arterial occlusive disease to the left lower limb with moderately d ecreased left LILIAM and TBI.
== END 2023-08-29 07:37 | disposition home or self-care (01) ==
PROVIDERS: PCP Family Medicine; Visit Provider Nurse Practitioner
DX: I73.9 Peripheral vascular disease, unspecified (principal); Z12.2 Encounter for screening for malignant neoplasm of respiratory organs; Z87.891 Personal history of nicotine dependence
CPT/HCPCS: 71271; 93922

== ENCOUNTER 2023-09-22 11:16 | Outpatient (CLI) | payer OTHER, SELFPAY ==
[2023-09-22 11:45] LABS: Hematocrit 37.3 % (42.0-52.0); Hemoglobin 12.8 g/dL (14.0-18.0); Mean Corpuscular HGB Conc 34.3 g/dl (32-36); Mean Corpuscular Hemoglobin 34.3 pg (26-34); Mean Platelet Volume 11.8 fl (7.4-10.4); Platelet Count Result 172 k/mm3 (150-375); Red Blood Count 3.73 M/mm3 (4.6-6.20); Red Cell Distribution Width 17.7 % (11.5-14.5)
[2023-09-22 11:51] LABS: White Blood Count 354.2 K/mm3 (4.5-10.0)
[2023-09-22 12:20] LABS: Band Neutrophils Percent 23 % (0-6); Lymphocytes Absolute Manual 70.84 K/mm3 (1.1-4.5); Metamyelocytes Percent 5 %; Monocytes Absolute Manual 7.08 K/mm3 (0.1-0.90); Monocytes Percent Manual 2 % (3-9); Myelocytes Percent 8 %; Neutrophils Absolute Manual 223.14 K/mm3 (1.3-6.7); Neutrophils Percent Manual 40 % (46-73); Promyelocytes Percent 2 %; Total Cells Counted 100
[2023-09-22 12:21] LABS: Atypical Lymphocytes Present; Platelet Estimate Adequate (Adequate); Schistocytes None Seen
[2023-09-22 17:08] LABS: Alanine Aminotransferase 51 U/L (6-50); Albumin Level 3.8 g/dL (3.5-5.1); Alkaline Phosphatase 163 U/L (38-126); Anion Gap 3 mmol/L (4-12); Aspartate Amino Transferase 58 U/L (17-59); Bilirubin,Total 0.5 mg/dL (0.2-1.3); Blood Urea Nitrogen 21 mg/dL (9-20); Calcium 9.7 mg/dL (8.4-10.2); Carbon Dioxide 33 mmol/L (22-30); Chloride 101 mmol/L (98-107); Estimated Glomerular Filt Rate 42; Glucose 129 mg/dL (65-110); Potassium 4.2 mmol/L (3.4-5.0); Sodium 137 mmol/L (137-145)
[2023-09-23 13:57] LABS: EBV Nuclear Ab Antibody >600.00 U/mL; EBV Virus Capsid Ag IgG Ab >750.00 U/mL; EBV Virus Capsid Ag IgM Ab <36.00 U/mL
[2023-09-29 09:33] LABS: BCR/abl P190 NOT DETECTED; BCR/abl P210 DETECTED; BCR/abl Source PERIPHERAL
[2023-10-05 09:37] LABS: Angiotensin Converting Enzyme <5 U/L (9-67)
== END 2023-09-22 11:17 | disposition home or self-care (01) ==
PROVIDERS: PCP Family Medicine; Visit Provider Internal Medicine Hematology & Oncology
DX: R16.1 Splenomegaly, not elsewhere classified (principal)
CPT/HCPCS: 36415; 80053; 82164; 85025; 86664; 86665; 88184

== ENCOUNTER 2023-09-29 12:50 | Outpatient (CLI) | payer OTHER, SELFPAY ==
--- NOTE | ~2023-09-29 | CT_ITS ---
EXAMINATION: CT abdomen pelvis w con DATE: 09/29/2023 13:30 INDICATION: Splenomegaly TECHNIQUE: Computed tomography (CT) of the abdomen and pelvis was performed with 100 mL Omnipaque-350 intravenous contrast. Automated exposure control and iterative reconstruction technique were employe d. The dose-length product was 354.75 mGy-cm. COMPARISON: None FINDINGS: Mild discoid atelectasis at the lingula. Heart size normal. No pericardial or pleural effusion. Hepat osplenomegaly with the right hepatic lobe measuring 21.3 cm craniocaudal length extending below level of the right iliac crest and with spleen measuring up to 18.1 cm in maximal length on the sagittal i mages. Cholecystectomy clips the gallbladder fossa. No intra or extra or ductal dilation. Pancreas, b ilateral kidneys and right adrenal gland are normal. Unchanged thickening of the left adrenal gland w ith 9 mm macroscopic attenuation left adrenal nodule consistent with a myelolipoma. Prominent diverti culosis with sigmoid predominance and without adjacent from trace stranding to suggest diverticulitis . Small bowel and appendix are normal. Bladder is normal. Prostatomegaly measuring 5.1 x 3.9 cm. No f ree intraperitoneal gas or fluid. No pathologically enlarged abdominal or pelvic lymphadenopathy. The re is calcified atherosclerosis of the aorta and many of the other arteries. Small fat-containing lef t inguinal hernia. Mild lumbar spondylosis with transitional partially lumbarized S1 segment. Mild to moderate bilateral hip osteoarthritis. Developing ankylosis at the bilateral sacroiliac joints. IMPRESSION: 1. Nonspecific hepatosplenomegaly. 2. Diverticulosis. Reviewed, dictated and finalized at location A.
== END 2023-09-29 12:51 | disposition home or self-care (01) ==
PROVIDERS: PCP Family Medicine; Visit Provider Internal Medicine Hematology & Oncology
DX: R16.1 Splenomegaly, not elsewhere classified (principal); K57.30 Diverticulosis of large intestine without perforation or abscess without bleeding
CPT/HCPCS: 74177; Q9967

== ENCOUNTER → 2023-11-08 00:21 | Day surgery (SDC) | payer OTHER, SELFPAY ==
--- NOTE | ~2023-11-08 | BM_ITS ---
EXAMINATION: CCL bone marrow asp w bx diag ORDER COMPLETED DATE: 11/08/2023 09:40 INDICATION: Chronic myeloid leukemia with leukocytosis TECHNIQUE: A time-out was performed to verify the patient's name, date of , and procedure to b e performed. The procedure including the risks and benefits was discussed with the patient. Risks dis cussed included bleeding, infection, nerve injury and allergic reaction. The patient understood the r isks and agreed to proceed. The skin overlying the right posterior iliac spine was prepped and draped in usual sterile fashion. Anesthetic was administered with 1% lidocaine subcutaneously. Moderate co nscious sedation was achieved with 50 mcg fentanyl IV. An 11 gauge needle was inserted into the right ilium with fluoroscopic guidance. Bone marrow was aspirated. An 8 gauge needle was then inserted int o the right ilium with fluoroscopic guidance. A core bone marrow biopsy was obtained. The needle was removed and the entry site was cleaned and dressed. There were no immediate complications. A total o f 35 fluoroscopic images were recorded. Fluoroscopy exposure time was 0.1 minutes. Total DAP was 145 mGycm^2 FINDINGS: Real-time fluoroscopy demonstrates the biopsy needle tip overlying the right posterior carmen c spine. IMPRESSION: 1. Successful fluoroscopic guided bone marrow aspiration. 2. Successful fluoroscopic guided bone marrow biopsy. Reviewed, dictated and finalized at location A.
[2023-11-08 07:59] VITALS: BP 112/39; PULSE 87; RESP 16; TEMP 36.2; O2SAT 95; BMI 23.1
[2023-11-08 08:14] LABS: Hematocrit 32.6 % (42.0-52.0); Mean Corpuscular HGB Conc 33.7 g/dl (32-36); Mean Corpuscular Hemoglobin 33.7 pg (26-34); Mean Platelet Volume 12.1 fl (7.4-10.4); Platelet Count Result 175 k/mm3 (150-375); Red Blood Count 3.26 M/mm3 (4.6-6.20)
[2023-11-08 08:27] LABS: INR 1.1
[2023-11-08 08:28] LABS: White Blood Count 191.5 K/mm3 (4.5-10.0)
[2023-11-08 08:47] LABS: Band Neutrophils Percent 4 % (0-6); Eosinophils Absolute Manual 11.49 K/mm3 (0.02-0.50); Eosinophils Percent Manual 6 % (0-4); Lymphocytes Absolute Manual 36.38 K/mm3 (1.1-4.5); Metamyelocytes Percent 2 %; Monocytes Absolute Manual 3.83 K/mm3 (0.1-0.90); Monocytes Percent Manual 2 % (3-9); Neutrophils Absolute Manual 132.13 K/mm3 (1.3-6.7); Neutrophils Percent Manual 65 % (46-73); Promyelocytes Percent 2 %; Total Cells Counted 100
[2023-11-08 08:48] LABS: Anisocytosis 1+; Macrocytosis 1+ (NORMAL); Ovalocytes 1+; Platelet Estimate Adequate (Adequate); Schistocytes None Seen
--- NOTE | 2023-11-08 09:02 | WPDMODSED ---
Moderate Sedation Note-Pt Data Patient Data Diagnosis: leukemia Present Complaint: leukocytosis Procedure to be performed/Plan: bone marrow biopsy Allergies Allergy/AdvReac Type Severity Reaction Status Date / Time No Known Allergies Allergy Mild Verified 11/07/23 16:02 Home Medications Medication Instructions Recorded Confirmed Type apixaban 5 mg tablet (Eliquis) 5 mg PO BID 05/08/19 11/07/23 History cholecalciferol (vitamin D3) 25 50 mcg PO DAILY 05/29/20 11/07/23 History mcg (1,000 unit) capsule metoprolol tartrate 50 mg tablet 50 mg PO BID 05/29/20 11/07/23 History qicvqcrujlfn-upyrjxua-mfadrr tablet 1 tablet PO DAILY 07/15/20 11/07/23 History lactobacillus combination no.9 4 4,000 mmu cells PO DAILY 07/26/22 11/07/23 History billion cell capsule (Adult 50 Plus Probiotic) zinc gluconate 30 mg tablet 15 mg PO DAILY 07/26/22 11/07/23 History atorvastatin 10 mg tablet 10 mg PO DAILY #90 tabs 06/20/23 11/07/23 Rx doxazosin 4 mg tablet 4 mg PO DAILY #90 tabs 06/20/23 11/07/23 Rx krill 1,000 mg-omega-3 170 mg-dha 1 cap PO BID 08/10/23 11/07/23 History 50 mg-epa 80 po-hsddkc-paefk capsule (krill oil) lisinopril 20 1 tablet PO DAILY 10/27/23 11/07/23 History mg-hydrochlorothiazide 12.5 mg tablet sitagliptin phosphate 25 mg tablet 25 mg PO DAILY 10/27/23 11/07/23 History (Meir) Sedation/Anesthesia: No previous sedation/anesthesia problems (including family history). [facility] Past Medical History Medical History Chronic kidney disease, stage 3 (moderate) Diverticulitis Elevated cholesterol Hepatitis C antibody test negative (07/11/17) Hypertension Metabolic syndrome Paroxysmal atrial fibrillation Surgical History Surgical History History of cholecystectomy History of meniscectomy of right knee Family History Family History Grandparent Diabetes mellitus Family history of coronary artery disease Mother Family history of glaucoma Hypertension Sibling Hypertension Family history of lymphoma Father Family history of coronary artery disease Family history of cardiovascular disease Social History Social History Social History: Caffeine-daily Smoking packs per day: 0.75 Smoking cigarettes per day: 15.0 Years smoked: 40 Smoking pack-years: 30.00 Smoking status: Current every day smoker Tobacco type: cigarettes Second hand tobacco smoke exposure: Yes Alcohol intake: current Alcohol use details: wine monthly Substance use: never Substance use type: does not use Lack of Transportation: No Lack of Food: Never True Current Housing: I Have Housing Concerned About Future Housing: No Difficulty Paying Gas/Electric Bills: No Difficulty Paying for Meds: No Currently Unemployed: YES Education: Bachelor's Degree Difficulty w/ Childcare or Family Care: No Living arrangements: with family Additional living arrangements comments: Occupation/Education: retired Gender identity (if verbalized by the patient): Male Sexual Orientation (if Verbalized by the Patient): Straight or Heterosexual Spiritual care concerns: No Agree to blood products: Yes Mod Sed Physical Exam Physical Exam Pre Procedural Exam: Normal: Appearance, Throat, Lungs, Heart Rate and Heart Rhythm Hours since solid foods: 12 Hours since liquid intake: 12 Mallampati Classification: class 1 Internal Medicine - PN: Obj Da Vital Signs Vital Signs: Vital Signs - 24 hr 11/08/23 07:59 Temperature 97.2 F L Pulse Rate 87 Respiratory Rate 16 Blood Pressure 112/39 L Pulse Oximetry 95 Oxygen Delivery Room Air Labs 11/08/23 08:02 Labs: Laboratory Results - last 24 hr 11/08/23 08:02 WBC 191.5 H* RBC 3.26 L H
[2023-11-08 09:30] VITALS: BP 121/45; PULSE 74; RESP 16; O2SAT 95
[2023-11-08 09:45] VITALS: BP 112/36; PULSE 74; RESP 16; O2SAT 93
[2023-11-08 10:00] VITALS: BP 107/45; PULSE 75; RESP 16; O2SAT 95
[2023-11-08 10:15] VITALS: BP 110/48; PULSE 72; RESP 16; O2SAT 94
== END | disposition home or self-care (01) ==
PROVIDERS: PCP Family Medicine; Referring Provider Internal Medicine Hematology & Oncology; Visit Provider Radiology Diagnostic Radiology
DX: C92.10 Chronic myeloid leukemia, BCR/ABL-positive, not having achieved remission (principal); I12.9 Hypertensive chronic kidney disease with stage 1 through stage 4 chronic kidney disease, or unspecified chronic kidney disease; N18.30 Chronic kidney disease, stage 3 unspecified; I48.0 Paroxysmal atrial fibrillation; E78.00 Pure hypercholesterolemia, unspecified; Z79.01 Long term (current) use of anticoagulants; Z79.84 Long term (current) use of oral hypoglycemic drugs; F17.210 Nicotine dependence, cigarettes, uncomplicated
CPT/HCPCS: 36415; 38222; 85025; 85610; 88305; 88311; 88313; J1642; J3010; J7040

== ENCOUNTER 2023-11-15 11:02 | Emergency (ER) | payer OTHER, SELFPAY ==
[2023-11-15] VITALS (21 sets, daily range): BP systolic 96–116; BP diastolic 44–89; PULSE 69–98; RESP 9–26; TEMP 37.1; O2SAT 94–100
--- NOTE | ~2023-11-15 | XR_ITS ---
EXAMINATION: XR chest 2V DATE: 11/15/2023 11:21 INDICATION: Weakness. TECHNIQUE: Frontal and lateral views of the chest were obtained. COMPARISON: Chest 2 views 04/27/2022, CT abdomen and pelvis 09/29/2023 FINDINGS: There is no pneumonia or pneumothorax. There are trace pleural effusions. The heart size is normal. IMPRESSION: 1. Trace pleural effusions. Reviewed, dictated and finalized at location A. IMPRESSION: 1. Trace pleural effusions.
--- NOTE | ~2023-11-15 | US_ITS ---
EXAMINATION: US venous doppler [facility] DATE: 11/15/2023 12:36 INDICATION: Lower limb swelling. TECHNIQUE: Grayscale ultrasound images without and with compression and Doppler ultrasound images of the bilateral lower extremity veins were obtained. COMPARISON: None. FINDINGS: The visualized portions of right common femoral vein, profunda (deep) femoral vein, femoral vein, pop liteal vein, peroneal veins, posterior tibial veins, and greater saphenous vein outflow are patent. The visualized portions of left common femoral vein, profunda femoral vein, femoral vein, popliteal v ein, peroneal veins, posterior tibial veins, and greater saphenous vein outflow are patent. IMPRESSION: 1. No deep venous thrombosis. Reviewed, dictated and finalized at location A.
--- NOTE | ~2023-11-15 | CT_ITS ---
EXAMINATION: CT brain wo con DATE: 11/15/2023 12:17 INDICATION: Weakness TECHNIQUE: Computed tomography (CT) of the head was performed without intravenous contrast. Sagittal and coronal reconstructions were performed. The mA was adjusted according to patient size. Iterative reconstruction technique was employed. The dose-length product was 756.67 mGy-cm. COMPARISON: Brain MR dated 07/25/2020 FINDINGS: No acute intracranial hemorrhage, acute infarction or abnormal extra axial fluid collection. There is mild scattered white matter hypoattenuation consistent with chronic small vessel ischemic disease. V entricles are normal and symmetric. No mass/mass effect. Small right mastoid effusion. Large mucous r etention cyst in the left maxillary sinus. Bilateral senescent scleral calcifications. Orbits are oth erwise normal. IMPRESSION: 1. Mild nonspecific cerebral white matter hypoattenuation consistent with chronic small vessel ischem ic disease. No acute intracranial process. Reviewed, dictated and finalized at location B. IMPRESSION: 1. Mild nonspecific cerebral white matter hypoattenuation consistent with chron ic small vessel ischemic disease. No acute intracranial process.
--- NOTE | 2023-11-15 11:06 | ECG_ITS ---
Test Date: 2023-11-15 11:07:36 Measurements Intervals [place] Rate: 74 P: 92 VT: 183 QRS: 38 QRSD: 85 T: 64 QT: 354 QTc: 394 Interpretive Statements SINUS RHYTHM LOW QRS VOLTAGE IN PRECORDIAL LEADS [QRS DEFLECTION < 1.0 mV IN CHEST LEADS] ANTEROSEPTAL MYOCARDIAL INFARCTION , OF INDETERMINATE AGE [40+ ms Q WAVE IN V1-V4] No previous ECG available for comparison Electronically Signed On 11-15-2023 13:39:12 CDT by Demi Youngblood M.D.
--- NOTE | 2023-11-15 12:01 | ED.GENADULT ---
HPI - General Adult General Chief complaint: Weakness Stated complaint: weakness Time Seen by Provider: 11/15/23 11:19 History of Present Illness HPI narrative: 73-year-old male presenting emergency department for evaluation of increased generalized weakness. Patient was recently diagnosed with leukemia and did start treatment last week. Patient does follow-up with Dr Brito. Patient has had follow-up with his physician yesterday, due to some lower extremity edema patient was started on Lasix and patient took his 1st dose today. Patient did have some activities today went to the [place] to visit with people and when the patient was returning home issues getting in his car he felt some bilateral lower extremity weakness. Patient presented emergency department by EMS. Upon arrival emergency department patient states he was feeling improved. Patient had no focal neurologic symptoms. Related Data Home Medications Medication Instructions Recorded Confirmed apixaban 5 mg tablet (Eliquis) 5 mg PO BID 05/08/19 11/07/23 cholecalciferol (vitamin D3) 25 50 mcg PO DAILY 05/29/20 11/07/23 mcg (1,000 unit) capsule metoprolol tartrate 50 mg tablet 50 mg PO BID 05/29/20 11/07/23 aduqxpefggvg-vrhjpvci-ekugbk tablet 1 tablet PO DAILY 07/15/20 11/07/23 lactobacillus combination no.9 4 4,000 mmu cells PO DAILY 07/26/22 11/07/23 billion cell capsule (Adult 50 Plus Probiotic) zinc gluconate 30 mg tablet 15 mg PO DAILY 07/26/22 11/07/23 krill 1,000 mg-omega-3 170 mg-dha 1 cap PO BID 08/10/23 11/07/23 50 mg-epa 80 hk-bzdxnv-tmqxr capsule (krill oil) lisinopril 20 1 tablet PO DAILY 10/27/23 11/07/23 mg-hydrochlorothiazide 12.5 mg tablet sitagliptin phosphate 25 mg tablet 25 mg PO DAILY 10/27/23 11/07/23 (Januvia) Allergies Allergy/AdvReac Type Severity Reaction Status Date / Time No Known Allergies Allergy Mild Verified 11/07/23 16:02 Review of Systems Review of Systems: All systems reviewed & are unremarkable except as noted in HPI and below PMFSH Past Medical History Medical History Chronic kidney disease, stage 3 (moderate) Diverticulitis Elevated cholesterol Hepatitis C antibody test negative (07/11/17) Hypertension Metabolic syndrome Paroxysmal atrial fibrillation Surgical History Surgical History History of cholecystectomy History of meniscectomy of right knee Family History Family History Grandparent Diabetes mellitus Family history of coronary artery disease Mother Family history of glaucoma Hypertension Sibling Hypertension Family history of lymphoma Father Family history of coronary artery disease Family history of cardiovascular disease Social History Social History Social History: Caffeine-daily Smoking packs per day: 0.75 Smoking cigarettes per day: 15.0 Years smoked: 40 Smoking pack-years: 30.00 Smoking status: Current every day smoker Tobacco type: cigarettes Second hand tobacco smoke exposure: Yes Alcohol intake: current Alcohol use details: wine monthly Substance use: never Substance use type: does not use Lack of Transportation: No Lack of Food: Never True Current Housing: I Have Housing Concerned About Future Housing: No Difficulty Paying Gas/Electric Bills: No Difficulty Paying for Meds: No Currently Unemployed: YES Education: Bachelor's Degree Difficulty w/ Childcare or Family Care: No Living arrangements: with family Additional living arrangements comments: Occupation/Education: retired Gender identity (if verbalized by the patient): Male Sexual Orientation (if Verbalized by the Patient): Straight or Heterosexual Spiritual care concerns: No Agree to blood products: Yes Exam Narrative
[2023-11-15 12:52] LABS: Hematocrit 28.7 % (42.0-52.0); Hemoglobin 9.2 g/dL (14.0-18.0); Mean Corpuscular HGB Conc 32.1 g/dl (32-36); Mean Corpuscular Hemoglobin 31.6 pg (26-34); Mean Corpuscular Volume 98.6 fl (80-100); Platelet Count Result 182 k/mm3 (150-375); Red Blood Count 2.91 M/mm3 (4.6-6.20); Red Cell Distribution Width 19.3 % (11.5-14.5); White Blood Count 19.5 K/mm3 (4.5-10.0)
[2023-11-15 13:04] LABS: Alanine Aminotransferase 40 U/L (6-50); Albumin Level 2.6 g/dL (3.5-5.1); Alkaline Phosphatase 134 U/L (38-126); Anion Gap 2 mmol/L (4-12); Aspartate Amino Transferase 33 U/L (17-59); Bilirubin,Total 0.4 mg/dL (0.2-1.3); Blood Urea Nitrogen 47 mg/dL (9-20); Calcium 7.9 mg/dL (8.4-10.2); Carbon Dioxide 26 mmol/L (22-30); Chloride 106 mmol/L (98-107); Estimated CRCL calculation 30 ml/min; Estimated Glomerular Filt Rate 33; Glucose 152 mg/dL (65-110); Potassium 4.2 mmol/L (3.4-5.0); Sodium 134 mmol/L (137-145)
[2023-11-15 13:11] LABS: INR 1.4; Prothrombin Time 17.6 Seconds (11.1-14.7)
[2023-11-15 13:12] LABS: Partial Thromboplastin Time 38.2 Seconds (22.3-36.8)
[2023-11-15 13:14] LABS: NT Pro B Type Natriuretic Pept 335 pg/mL (19.9-100); Troponin I < 0.012 ng/mL (0.000-0.034)
[2023-11-15 13:23] LABS: Band Neutrophils Percent 6 % (0-6); Basophils Absolute Manual 1.17 K/mm3 (0.0-0.1); Basophils Percent Manual 6 % (0-1); Eosinophils Absolute Manual 1.17 K/mm3 (0.02-0.50); Eosinophils Percent Manual 6 % (0-4); Lymphocytes Absolute Manual 2.14 K/mm3 (1.1-4.5); Metamyelocytes Percent 2 %; Monocytes Absolute Manual 0.58 K/mm3 (0.1-0.90); Monocytes Percent Manual 3 % (3-9); Neutrophils Absolute Manual 13.65 K/mm3 (1.3-6.7); Neutrophils Percent Manual 64 % (46-73); Platelet Estimate Adequate (Adequate); Promyelocytes Percent 2 %; Schistocytes None Seen; Total Cells Counted 100
[2023-11-15 13:24] LABS: Anisocytosis 1+
== END 2023-11-15 15:19 | disposition home or self-care (01) ==
PROVIDERS: Emergency Provider Emergency Medicine; PCP Family Medicine
DX: R60.0 Localized edema (principal); R53.1 Weakness; C95.90 Leukemia, unspecified not having achieved remission; I12.9 Hypertensive chronic kidney disease with stage 1 through stage 4 chronic kidney disease, or unspecified chronic kidney disease; N18.30 Chronic kidney disease, stage 3 unspecified; I48.0 Paroxysmal atrial fibrillation; F17.210 Nicotine dependence, cigarettes, uncomplicated
CPT/HCPCS: 36415; 70450; 71046; 80053; 83880; 84484; 85025; 85610; 85730; 93005; 93970; 99284

== ENCOUNTER 2023-12-05 11:02 | Outpatient (CLI) | payer OTHER, SELFPAY ==
[2023-12-05 11:17] LABS: Basophils Absolute Auto 0.7 K/mm3 (0.0-0.1); Basophils Percent Auto 5.2 % (0.2-1.2); Eosinophils Absolute Auto 0.6 K/mm3 (0-0.3); Eosinophils Percent Auto 4.3 % (0-4.4); Hematocrit 32.3 % (42.0-52.0); Hemoglobin 10.2 g/dL (14.0-18.0); Immature Granulocyte Absolute 0.26 K/mm3 (0.00-0.031); Lymphocytes Absolute Auto 1.02 K/mm3 (0.9-3.2); Mean Corpuscular HGB Conc 31.6 g/dl (32-36); Mean Corpuscular Hemoglobin 31.7 pg (26-34); Mean Corpuscular Volume 100.3 fl (80-100); Mean Platelet Volume 9.8 fl (7.4-10.4); Monocytes Percent Auto 7.5 % (2.6-8.5); Neutrophils Absolute Auto 9.3 K/mm3 (1.3-6.7); Platelet Count Result 361 k/mm3 (150-375); Red Blood Count 3.22 M/mm3 (4.6-6.20); Red Cell Distribution Width 17.9 % (11.5-14.5); White Blood Count 12.8 K/mm3 (4.5-10.0)
[2023-12-05 11:24] LABS: Blood Urea Nitrogen 19 mg/dL (8-26); Carbon Dioxide 30 mmol/L (22-30); Chloride 97 mmol/L (98-109); Estimated Glomerular Filt Rate 42; Glucose 132 mg/dL (70-105); Ionized Calcium (POC) 1.14 mmol/L (1.11-1.31); Potassium 4.3 mmol/L (3.5-4.9); Sodium 139 mmol/L (138-146)
== END 2023-12-05 11:03 | disposition home or self-care (01) ==
PROVIDERS: PCP Family Medicine; Visit Provider Internal Medicine Hematology & Oncology
DX: C92.10 Chronic myeloid leukemia, BCR/ABL-positive, not having achieved remission (principal)
CPT/HCPCS: 36415; 80047; 85025

== ENCOUNTER 2024-05-07 07:14 | Outpatient (RCR) | payer OTHER, SELFPAY ==
[2024-02-28 07:45] VITALS: BMI 23.8
--- NOTE | 2024-05-09 10:09 | PCWOUND ---
WOCN NOTE Spoke with patient's Osorio, who states that patient is going to have a Right below the knee amputation next Tuesday. All future appointments have been cancelled at this time. Patient or his spouse to contact us for any questions or concerns.
== END 2024-05-28 23:59 | disposition home or self-care (01) ==
LOC: ANHWOC 07:14
PROVIDERS: PCP Family Medicine; Visit Provider Nurse Practitioner
DX: L97.929 Non-pressure chronic ulcer of unspecified part of left lower leg with unspecified severity (principal); L97.919 Non-pressure chronic ulcer of unspecified part of right lower leg with unspecified severity
CPT/HCPCS: 29581; 99213; 99214; A9270; G0463

== ENCOUNTER 2024-12-17 12:30 | Outpatient (RCR) | payer OTHER, SELFPAY ==
--- NOTE | 2024-10-02 12:11 | OPREHPOC ---
Outpatient Therapy Plan of Care This is a Multidisciplinary Plan of Care that may contain components documented by all disciplines (PT, OT, and ST.) PT Problem 1 PT Problem #1 Knowledge Deficit PT Goal 1 Goal / Goal Update *independent with HEP Target Visit 10 PT Problem 2 PT Problem #2 Impaired Functional Mobility PT Goal 1 Goal / Goal Update increase functional mobility and balance, for pt to return to community mobility and previous activity level 1* 2 minute walking test distance of 200' 2* Tinetti balance score of 24/28 3* sit/stand transfer with use of 1 UE x 5 reps 4* pt up/down 12 steps with one hand railing, independent 5* pt report wearing tolerance of prosthesis of 6 hours/time Target Visit 19
--- NOTE | 2024-10-02 12:11 | PTOPEVAL1 ---
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; due to illness/cancer, has lost 55# and overall out of shape recently had 1 week of in pt rehab for prosthetic training, discharged September 19 to home; at rehab was walking 110' with wheeled walker; since home: wearing prosthesis 30 minutes at a time and walking in the house a few times with wheeled walker; home exercises from rehab: lying down for legs and bands for arm exercises; home: with Star; 2 entry steps into home with one hand railing- can do ok; have not done upstairs at home with L ascending hand railing; 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 He had the amputation in April 2024 and recently comlpeted 1 week of in pt rehab for prosthetic gait training. 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 Pt is motivated and is supportive to him. With the evaluation: he has gross, good strength of R LE and L hip; independent with bed mobility; sit/stand transfer requires both UE use; LE functional scale self rating of 60% limitation in activity level; Tinetti balance score of 14/28= high risk for falls; 2 minute walking test distance of 120' and maximum walking tolerance of 160', with wheeled walker and R LE prosthesis. Skilled PT services are indicated to increase gait and balance skills, to improve mobility and safety with his prosthesis, with progression to cane as tolerated, and education for gait pattern, prosthesis use and progression of HEP. Plan of Care Interventions Gait Training,Neuro Re-education,Patient/Caregiver Education,Prosthetic Training,Therapeutic Activities,Therapeutic Exercise PT Services Indicated Yes Treatment Frequency and 2x/wk for 10 visits Duration These treatments will address the objective and functional deficits as defined above. The patient will be advanced safely and appropriately in order for the patient to progress towards his/her prior level of function. Additional exercises will be introduced and as well as a comprehensive home exercise program upon discharge, if needed, ?to ensure carryover of functional gains achieved in the clinic. This treatment plan has been reviewed and agreement upon by the patient.
--- NOTE | 2024-11-05 12:02 | OPREHPOC ---
Outpatient Therapy Plan of Care This is a Multidisciplinary Plan of Care that may contain components documented by all disciplines (PT, OT, and ST.) PT Problem 1 PT Problem #1 Knowledge Deficit PT Goal 1 Goal / Goal Update *independent with HEP 11-05-24 progress goal met continue to progress HEP and education Target Visit 17 PT Problem 2 PT Problem #2 Impaired Functional Mobility PT Goal 1 Goal / Goal Update increase functional mobility and balance, for pt to return to community mobility and previous activity level 1* 2 minute walking test distance of 200' 2* Tinetti balance score of 24/28 3* sit/stand transfer with use of 1 UE x 5 reps 4* pt up/down 12 steps with one hand railing, independent 5* pt report wearing tolerance of prosthesis of 6 hours/time 11-05-24 progress goal 3 met; improved with #1 to 125'; #4 with bilateral hand rails #5 to 4& 1/2 hours Target Visit 17 PT Problem 3 PT Problem #3 Impaired Gait PT Goal 1 Goal / Goal Update 11-05-24 progress NEW goal 1* pt ambulate with jamshid cane, independent on level surface Target Visit 17
--- NOTE | 2024-11-05 12:02 | PTOPPROG ---
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 GOAL: walk with a cane and go up his steps into the front door with one hand railing. PAIN range of 0-4/10 in R stump with wearing prosthesis Assessment PT Clinical Summary Luis has received 9 PT sessions. He has improved with all mobility since initial evaluation, except Tinetti balance score is same at . With today's reassessment: sit/stand transfer from w/c with use of 1 UE; 5 reps sit/stand time of 40 seconds; wearing time of prosthesis of most at 4 & 1/2 hours; Self assessment with LE functional scale rating of 54% limitation in activity; 2 minute walking test distance of 125' with wheeled walker; with the jamshid cane, is able to walk 50'- with CGA for safety and verbal cues for gait pattern; 12 steps with bilateral hand rails and CGA for safety. Education for HEP, gait pattern with assistive device and safety with mobility. The goals were partially met. Continue PT treatment. Plan of Care Interventions Gait Training,Neuro Re-education,Patient/Caregiver Education,Prosthetic Training,Therapeutic Activities,Therapeutic Exercise PT Services Indicated Yes Treatment Frequency and 1-2x/wk for 8 visits Duration These treatments will address the objective and functional deficits as defined above. The patient will be advanced safely and appropriately in order for the patient to progress towards his/her prior level of function. Additional exercises will be introduced and as well as a comprehensive home exercise program upon discharge, if needed, ?to ensure carryover of functional gains achieved in the clinic. This treatment plan has been reviewed and agreement upon by the patient.
--- NOTE | 2024-12-17 13:28 | OPREHPOC ---
Outpatient Therapy Plan of Care This is a Multidisciplinary Plan of Care that may contain components documented by all disciplines (PT, OT, and ST.) PT Problem 1 PT Problem #1 Knowledge Deficit PT Goal 1 Goal / Goal Update *independent with HEP 11-05-24 progress goal met continue to progress HEP and education 12-17-24 progress goal met continue to progress HEP and education Target Visit 25 PT Problem 2 PT Problem #2 Impaired Functional Mobility PT Goal 1 Goal / Goal Update increase functional mobility and balance, for pt to return to community mobility and previous activity level 1* 2 minute walking test distance of 200' 2* Tinetti balance score of 3* sit/stand transfer with use of 1 UE x 5 reps 4* pt up/down 12 steps with one hand railing, independent 5* pt report wearing tolerance of prosthesis of 6 hours/time 11-05-24 progress goal 3 met; improved with #1 to 125'; #4 with bilateral hand rails #5 to 4& 1/2 hours 12-17-24 progress goal 5 met continue towards other goals Target Visit 25 PT Problem 3 PT Problem #3 Impaired Gait PT Goal 1 Goal / Goal Update 11-05-24 progress NEW goal 1* pt ambulate with jamshid cane, independent on level surface 12-17-24 progress goal not met, requires CGA continue towards goal Target Visit 25
--- NOTE | 2024-12-17 13:28 | PTOPPROG ---
Assessment and note entered by Stacey Victoria, PT Assessment Status Progress Diagnosis R AKA ICD-10 Condition Codes (PT) Difficulty Walking R26.2,Abnormalities of gait and mobility R26.9,Weakness R53.1 Onset Apr 2024 Subjective Information is wearing his prosthesis 2-6 hours/day, with average day about 3 hours/day; do not trust the leg all the time with walking/standing; have been going out into the community more and out to eat; have a jamshid cane or wheeled walker at home; when leg is on, walk about 1x/hour from room/room with walker most of the time; want to be able to do more; want to continue for therapy to keep working on my walking and balance; goal: walk without needing support PAIN: range 0-2/10 phantom pain and sometimes sharp R leg; reports pain at end of stump & LBP with walking Assessment PT Clinical Summary Luis has received a total of 17 PT sessions. Compared to the last reassessment he has made improvements with: Self assessment LE functional scale from 54 to 45% limitation in activity level; 2 minute walking test distance with wheeled walker 125 to 140'; maximum walking distance with wheeled walker from 225' to 300' in 4 minutes and 44 seconds; maximum walking distance with jamshid cane of 40' in 2 minutes; 12 steps with bilateral hand rails and CGA for safety; Tinetti balance/ gait score from 14 to 18/28; gait pattern now with wheeled walker, step length pass other foot; increased reported wearing time of prosthesis of 2-6 hours/day; sit/stand transfer requires use of both UE's; 5 reps sit/stand time of 17 seconds, without letting go of UE on arm rests in standing; The goals were partially met. Continue PT treatment, to further improve gait and balance skills, for safety and mobility. Plan of Care Interventions Gait Training,Neuro Re-education,Patient/Caregiver Education,Prosthetic Training,Therapeutic Activities,Therapeutic Exercise PT Services Indicated Yes Treatment Frequency and 1-2x/wk for 8 visits Duration These treatments will address the objective and functional deficits as defined above. The patient will be advanced safely and appropriately in order for the patient to progress towards his/her prior level of function. Additional exercises will be introduced and as well as a comprehensive home exercise program upon discharge, if needed, ?to ensure carryover of functional gains achieved in the clinic. This treatment plan has been reviewed and agreement upon by the patient.
== END 2024-12-31 23:59 | disposition home or self-care (01) ==
LOC: ANHPT 12:30
PROVIDERS: PCP Family Medicine; Visit Provider Family Medicine
DX: Z44 Encounter for fitting and adjustment of external prosthetic device (principal); L97.519 Non-pressure chronic ulcer of other part of right foot with unspecified severity; I73.9 Peripheral vascular disease, unspecified; R26.2 Difficulty in walking, not elsewhere classified; R26.9 Unspecified abnormalities of gait and mobility; R53.1 Weakness; Z89.611 Acquired absence of right leg above knee
CPT/HCPCS: 97110; 97116; 97140; 97161; 97530

== ENCOUNTER 2025-01-16 14:25 | Outpatient (CLI) | payer OTHER, SELFPAY ==
--- NOTE | 2025-01-16 14:31 | ECG_ITS ---
Test Date: 2025-01-16 14:42:10 Measurements Intervals [place] Rate: 77 P: 0 IL: 0 QRS: 39 QRSD: 137 T: 43 QT: 400 QTc: 454 Interpretive Statements ATRIAL FLUTTER WITH NORMAL VENTRICULAR RESPONSE RIGHT BUNDLE BRANCH BLOCK CANNOT R/O SEPTAL INFARCT, AGE INDETERMINATE BASELINE ARTIFACT- I, II, III ABNORMAL ECG Compared to ECG 11/15/2023 11:07:36 Right bundle-branch block now present Sinus rhythm no longer present Electronically Signed On 01-16-2025 14:56:13 CDT by Amadou Longoria D.O.
--- OUTSIDE RECORDS SUMMARY | 2025-01-16 14:35 | XMS_ITS | Encounter Summary ---
Author Organization [facility] Address [address] [place] [address] Phone Care Team Providers Care Hydrometer Tester Name Role Phone Johnny Artis MD Primary Care Provider [phone] Michela Rosa DO Primary Care Provider [phone] Encounter Details Date Type Department Care Team (Latest Contact Info) Description 08/15/2018 Orders Only [facility] Scanning, Provider Social History Tobacco Use Types Packs/Day Years Used Date Smoking Tobacco: Every Day Smokeless Tobacco: Never Alcohol Use Standard Drinks/Week Comments Yes 0 (1 standard drink = 0.6 oz pur e alcohol) Sex and Gender Information Value Date Recorded Sex Assigned at Not on file Legal Sex Male 8:51 AM REGULATORY AFFAIRS CONSULTANT Gender Identity Male 10/25/2023 2:34 PM CDT Sexual Orientation Choose not to disclose 2023 2:34 PM CDT documented as of this encounter Plan of Treatment Not on file documented as of this encounter Procedures Procedure Name Priority Date/Time Associated Diagnosis Comments CARDIOLOGY DOCUMENT SCAN 08/15/2018 documented in this encounter Results * SCAN - CARDIOLOGY (08/15/2018) Anatomical Region Laterality Modality Other us Provider Scanning [facility] CARDIAC SERVICES PROCEDURES Final Result documented in this encounter Visit Diagnoses Not on filedocumented in this encounter Care Teams Hydrometer Tester Relationship Specialty Start Date End Date Johnny Artis MD [address] [place] [address] PCP - General 05/12/10 09/27/23 Michela Rosa DO [address] [place] [address] [place] [address] PCP - General Family Medicine 09/28/23 documented as of this encounter
--- OUTSIDE RECORDS SUMMARY | 2025-01-16 14:35 | XMS_ITS | Encounter Summary ---
Author Organization [facility] Address [address] [place] [address] Phone Care Team Providers Care Mold Maker Apprentice Name Role Phone Johnny Artis MD Primary Care Provider [phone] Michela Rosa DO Primary Care Provider [phone] Encounter Details Date Type Department Care Team (Late st Contact Info) Description 02/18/2020 Telephone [facility] Cardiology [address] [facility] [address] [place] [address] [place] [address] Pako Hawthorne MD [address] [facility] [address] [address] Social History Tobacco Use Types Packs/Day Years Used Date Smoking Tobacco: Every Day Smokeless Tobacco: Never Alcohol Use Standard Drinks/Week Comments Yes 0 (1 standard drink = 0.6 oz pur e alcohol) Sex and Gender Information Value Date Recorded Sex Assigned at Not on file Legal Sex Male 8:51 AM ASSOCIATE EMBALMER/FUNERAL DIRECTOR Gender Identity Male 10/25/2023 2:34 PM CDT Sexual Orientation Choose not to disclose 2023 2:34 PM CDT documented as of this encounter Plan of Treatment Not on file documented as of this encounter Visit Diagnoses Not on filedocumented in this encounter Care Teams Mold Maker Apprentice Relationship Specialty Start Date End Date Johnny Artis MD [address] [place] [address] PCP - General 05/12/10 09/27/23 Michela Rosa DO [address] [place] [address] [place] [address] PCP - General Family Medicine 09/28/23 documented as of this encounter
--- OUTSIDE RECORDS SUMMARY | 2025-01-16 14:35 | XMS_ITS | Clinical Summary ---
Author Organization [facility] Address [address] [place] [address] Care Team Providers Care Hand Cementer Name Role Phone Michela Rosa Primary Care Provider [phone] Allergies No known active allergies Medications apixaban (Eliquis) 5 mg tablet TAKE ONE TABLET BY MOUTH TWICE A DAY 60 Tablet 11 12/23/2023 10:11 AM CDT 05/10/2023 Active metoprolol tartrate (LOPRESSOR) 50 mg tablet Take 50 mg by mouth 2 times daily. Active mv-min/folic/K1 /lycopen/lutein (CENTRUM SILVER MEN ORAL) Take by mouth. Active omega-3 fatty acids-fish oil 300-1,000 mg Capsule Take by mouth daily. Active atorvastatin (LIPITOR) 10 mg tablet Take 10 mg by mouth daily. Active doxazosin (CARDURA) 4 mg tablet Take 4 mg by mouth daily. Active cholecalciferol , Vitamin D3, (VITAMIN D3) 25 mcg (1,000 unit) Capsule Take by mouth daily. Active SITagliptin phosphate (JANUVIA) 25 mg Tablet Take 25 mg by mouth daily with breakfast. Active Zinc Sulfate 66 mg Tablet Take by mouth. Active Saccharomyces boulardii (FLORASTOR) 250 mg Capsule Take by mouth. Active SITagliptin phosphate (Januvia) 25 mg Tablet Take 1 Tablet (25 mg) by mouth daily. 30 Tablet 01/02/2024 Active gabapentin (NEURONTIN) 100 mg capsule Take 1 Capsule (100 mg) by mouth daily at bedtime. 90 Capsule 04/03/2024 Active HYDROcodone-yohana taminophen (NORCO) 5-325 mg tablet Take 1 tablet by mouth every 8 hours as needed for pain. 20 Tablet 04/03/2024 Active oxyCODONE (ROXICODONE) 5 mg tabletIndicatio ns:CML (chronic myelocytic leukemia) (CMS/HCC) Take 1 Tablet (5 mg) by mouth every 8 hours as needed for Pain. Max Daily Amount: 15 mg 30 Tablet 04/23/2024 Active metoprolol tartrate (LOPRESSOR) 50 mg tablet Take 1 Tablet (50 mg) by mouth 2 times daily. 180 Tablet 1 12/13/2024 5:54 PM CDT 11/30/2024 Active bosutinib (BOSULIF) 400 mg tablet Take 1 Tablet (400 mg) by mouth daily with breakfast. 30 Tablet 2 12/05/2024 Active Active Problems No known active problems Encounters Date Type Department Care Team Description 01/09/2025 External Device Data [facility] ABSTRACTION Provider, Abstract 01/08/2025 External Device Data [facility] ABSTRACTION Provider, Abstract 12/05/2024 3:30 PM CDT Office Visit [facility] Oncology and Hematology [facility] [address] [place] [address] Shantanu Brito MD CML (chronic myelocytic leukemia) (CMS/HCC) (Primary Dx) 11/27/2024 Orders Only Initial Department [address] [place]: [place] [address] Provider, Historical 11/05/2024 Abstract [facility] Oncology and Hematology [facility] [address] [place] [address] Shantanu Brito MD 10/16/2024 Refill [facility] Oncology and Hematology [facility] [address] [place] [address] Shantanu Brito MD from Last 3 Months Family History Medical History Relation Name Comments Lymphoma Brother 2 Heart Disease Father Diabetes Mother Relation Name Status Comments Brother 1 Alive Brother 2 Father Mother Social History Tobacco Use Types Packs/Day Years Used Date Smoking Tobacco: Every Day Cigarettes 1 53.7 Started: 1973 Smokeless Tobacco: Never Alcohol Use Standard Drinks/Week Comments Never 0 (1 standard drink = 0.6 oz pur e alcohol) Sex and Gender Information Value Date Recorded Sex Assigned at Not on file Legal Sex Male 3:27 PM CDT Gender Identity Not on file Sexual Orientation Not on file Last Filed Vital Signs Vital Sign Reading Time Taken Comments Blood Pressure 140/69 12/05/2024 3:31 PM CDT Pulse 78 12/05/2024 3:28 PM CDT Temperature 37 C (98.6 F) 12/05/2024 3:28 PM CDT Respiratory Rate 16 12/05/2024 3:28 PM CDT Oxygen Saturation 92% 12/05/2024 3:28 PM CDT Inhaled Oxygen Concentration - - Weight 67 kg (147 lb 12.8 oz) 12/05/2024 3:28 PM CDT Height 177.8 cm (5' 10) 09/22/2023 10:17 AM CDT Body Mass Index 21.21 09/22/2023 10:17 AM CDT Plan of Treatment Upcoming Encounters Date Type Department Care Team (Late st Contact Info) Description 03/13/2025 2:00 PM CDT Office Visit [facility] Oncology and Hematology - [place] [address] [facility] [address] [place] [address] Shantanu Brito MD [address] [facility] [address] [place] [address] Health Maintenance Due Date Last Done Comments DTAP/TDAP/TD VACCINES (1 - Tdap) 01/26/1967 PNEUMOCOCCAL VACCINE 50+ YEARS (1 of 2 - PCV) 01/26/19 67 ZOSTER VACCINE (1 of 2) 01/26/1967 Lung Cancer Screening 01/26/1998 RSV VACCINE (60+ or ) (1 - 1-dose 75+ series) 01/26/2023 INFLUENZA VACCINE (#1) 2024 Procedures Procedure Name Priority Date/Time Associated Diagnosis Comments BCR/ABL1, QUANTITATIVE W/REFLEX Routine 11/27/2024 7:58 AM CDT CBC WITH DIFFERENTIAL Routine 11/27/2024 7:58 AM CDT COMPREHENSIVE METABOLIC PANEL Routine 11/27/2024 7:58 AM CDT from Last 3 Months Results * (ABNORMAL) BCR/ABL1, QUANTITATIVE W/REFLEX (11/27/2024 7:58 AM CDT) HISTORY CHECK NG [facility], SOURCE BL [facility], BCR ABL1/ABL1 % (IS) 5.052(H) 0.000 [facility], BCR/ABL INTERPRETATION SEE NOTE [facility], Comment: The P210 BCR-ABL1 fusion transcript is detected. Reverse hosiery operator real-time PCR is performed for the P190 and P210 BCR-ABL1 transcripts associated with the t(9;22) chromosomal translocation. Results are expressed as a percent ratio of BCR-ABL1 to ABL1 and further adjusted to the international scale (IS). Optimal therapy in CML is associated with levels of BCR-ABL1 below the major molecular response (MMR) milestone indicated by a BCR-ABL1 value of 0.1% (IS). Monitoring of treatment-free remission (TFR) requires the ability to accurately measure BCR-ABL transcripts to a level, classified as < or = 0.0032% of IS or Molecular Reduction (MR) 4.5. For additional information, please refer to http://education.Fannect/faq/FAQ72 (This link is being provided for informational/educational purposes only.) Assay sensitivity is at least 4.5-logs below baseline BCR-ABL1 transcript levels but is dependent on quantity and quality of RNA used for testing and the cellularity of the sample. This test was developed and its analytical performance characteristics have been determined by [facility]. It has not been cleared or approved by the FDA. This assay has been validated pursuant to the CLIA regulations and is used for clinical purposes. BCR/ABL P210 DETECTED [facility], Comment: FASTING:NO PRIOR AUTH REQUIRED, PATIENT ADVISED TO CONTACT PHYSICIAN. FASTING: NO Test Performed at: [facility], [address] [place] [address] Karla Rios MD,PhD,MAGGIE 11/27/2024 7:58 AM CDT 11/27/2024 8:07 AM CDT Shantanu Brito MD BODY FLUIDS AND STOOLS Final Re sult [facility] [phone] [facility], [address] [place] [address] * (ABNORMAL) CBC WITH DIFFERENTIAL (11/27/2024 7:58 AM CDT) WBC 13.5(H) 3.8 - 10.8 Thousand/ uL [facility] RBC 4.63 4.20 - 5.80 Million/u L [facility] HEMOGLOBIN 13.4 13.2 - 17.1 g/dL [facility] HEMATOCRIT 41.5 38.5 - 50.0 % [facility] MCV 89.6 80.0 - 100.0 fL [facility] MCH 28.9 27.0 - 33.0 pg [facility] MCHC 32.3 32.0 - 36.0 g/dL [facility] Comment: For adults, a slight decrease in the calculated MCHC value (in the range of 30 to 32 g/dL) is most likely not clinically significant; however, it should be interpreted with caution in correlation with other red cell parameters and the patient's clinical condition. RDW 14.6 11.0 - 15.0 % [facility] PLATELETS 230 140 - 400 Thousand/ uL [facility] MPV 13.8(H) 7.5 - 12.5 fL [facility] NEUTROPHIL ABSOLUTE 9,329(H) 1,500 - 7,800 cells/uL [facility] LYMPHOCYTE ABSOLUTE 2,282 850 - 3,900 cells/uL [facility] MONOCYTE ABSOLUTE 1,296(H) 200 - 950 cells/uL [facility] EOSINOPHIL ABSOLUTE 486 15 - 500 cells/uL [facility] BASOPHILS ABSOLUTE 108 0 - 200 cells/uL [facility] NEUTROPHIL 69.1 % [facility] LYMPHOCYTES 16.9 % [facility] MONOCYTE 9.6 % [facility] EOSINOPHILS 3.6 % [facility] BASOPHILS 0.8 % [facility] Comment: FASTING:NO PRIOR AUTH REQUIRED, PATIENT ADVISED TO CONTACT PHYSICIAN. FASTING: NO Test Performed at: [place] [address] [place] [address] Shsahank Nieto 11/27/2024 7:58 AM CDT 11/27/2024 8:07 AM CDT us Shantanu Brito MD HEMATOLOGY ORDERABLES Final Res ult [facility] [phone] [facility] [place] [address] [place] [address] * (ABNORMAL) COMPREHENSIVE METABOLIC PANEL (11/27/2024 7:58 AM CDT) GLUCOSE 113 65 - 139 mg/dL [facility] Comment: Non-fasting reference interval BUN 14 7 - 25 mg/dL [facility] CREATININE 1.37(H) 0.70 - 1.28 mg/dL [facility] GFR 53(L) > OR = 60 mL/min/1. 73m2 [facility] BUN/CREAT RATIO 10 6 - 22 (calc) [facility] SODIUM 138 135 - 146 mmol/L [facility] POTASSIUM 4.6 3.5 - 5.3 mmol/L [facility] CHLORIDE 102 98 - 110 mmol/L [facility] CO2 29 20 - 32 mmol/L [facility] CALCIUM 9.4 8.6 - 10.3 mg/dL [facility] TOTAL PROTEIN 6.3 6.1 - 8.1 g/dL [facility] ALBUMIN 3.7 3.6 - 5.1 g/dL [facility] GLOBULIN 2.6 1.9 - 3.7 g/dL (calc) [facility] ALBUMIN/GLOBULIN RATIO 1.4 1.0 - 2.5 (calc) [facility] BILIRUBIN TOTAL 0.4 0.2 - 1.2 mg/dL [facility] ALKALINE PHOSPHATASE 95 35 - 144 U/L [facility] AST 18 10 - 35 U/L [facility] ALT 21 9 - 46 U/L [facility] Comment: FASTING:NO PRIOR AUTH REQUIRED, PATIENT ADVISED TO CONTACT PHYSICIAN. FASTING: NO Test Performed at: [place] [address] [place] [address] Shashank Nieto 11/27/2024 7:58 AM CDT 11/27/2024 8:07 AM CDT us Shantanu Brito MD CHEMISTRY ORDERABLES Final Resu lt [facility] [phone] [facility] [place] [address] [place] [address] from Last 3 [address]ths [place] [address] [place] [address] RX [facility] [employer] Commercial RX [employer] (INTERNAL) [facility] [address] [place] [address] MEDICARE PART A HOSPITAL ONLY [facility] B[employer]EFIT PLANS Care Teams Hand Cementer Relationship Specialty Start Date End Date Michela Rosa DO [address] [facility] [address] [place] [address] PCP - General Family Practice 09/02/23
--- OUTSIDE RECORDS SUMMARY | 2025-01-16 14:35 | XMS_ITS ---
Author Organization [facility] Address [address] [place] [address] Care Team Providers Care Welder Pipe Making Name Role Phone Michela Rosa DO Primary Care Provider [phone]- [phone] Active Problems Problem Noted Date Diagnosed Date CML (chronic myelocytic leukemia) 05/08/2024 Bradycardia 05/08/2024 Normocytic normochromic anemia 05/08/2024 Metabolic syndrome 05/08/2024 Nicotine abuse 05/08/2024 Leukocytosis 05/08/2024 Thrombocytosis 05/08/2024 Transaminitis 05/08/2024 SUDARSHAN (acute kidney injury) 05/08/2024 Stage 3 chronic kidney disease 05/08/2024 Femoral artery occlusion, right 05/08/2024 Peripheral vascular disease 05/08/2024 Assessment & Plan (10/17/2024 9:40 AM CDT): Status post right above-knee amputation which is healed. Continue working with P&O prosthetic. Stable occlusive disease of the left lower extremity. Follow up in 6 months repeat noninvasives testing. Wound of right lower extremity, initial encounte r 05/07/2024 PVD (peripheral vascular disease) 09/21/2023 Assessment & Plan (08/03/2024 10:18 AM CDT): Right [id number] amputation site has completely healed. Left lower extremity continues to have chronic edema and dry skin. Denies any rest pain or ischemic ulcerations. Discussed the need for compliance and continued work with physical therapy to help with his prosthetic and weight-bearing status as well as continued work and exercise with the left limb to strengthen it. Also encouraged use of some compression to help manage the swelling to his left lower extremity. Assessment & Plan (07/09/2024 10:15 AM MEDICAL PHYSICS RESEARCHER): Status post right above-knee amputation. His amputation site has healed nicely. Would like to have his tyrosine kinase inhibitor held for a total of 6 weeks. We will follow up in 8 weeks for repeat evaluation. Patient's limb was fully healed. No comorbidities impacting use of a prosthesis. Good balance and physical condition. Prior to amputation patient was ambulating and a K3 level or uneven terrain at variable caroline. 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 He is often on uneven terrain natural to golf course fair ways [place] and slips. He has a strong desire to return to full K 3 ambulation as he was prior to amputation. Patient requires a custom fabricated transfemoral prosthesis with a micro processor controlled hydraulic knee and K 3 flexible carbon fiber foot with axial rotation unit. A micro processor controlled hydraulic prosthetic knees medically necessary due to stumble recovery and activity specific features. The MP case system we will allow. Descent when traversing declines common to golf courses train while preventing falls. It allows and 2-0 stands for patient to crouch with a locked knee when taken a swing and moved directly into ambulation. Overall the knee we will provide a reduction and fall risk and energy consumption and a meat patient's functional needs. A right K 3 dynamic energy returns/multiaxial foot with torsion unit as necessary to allow ambulation on uneven terrain and decrease shear force between the residual limb in the inner socket wall. Without multi axial and torsion components the patient was residual limb tissue we will be exposed to abnormal shear forces during golf swing and walking on uneven terrain increasing his risk of skin breakdown. The patient's expected functional potential for mobility level is that of K 3 mobility with variable caroline as he was prior. The difference between the patient's prior functional abilities and expected functional potential she would remain unchanged if it with prosthesis. Assessment & Plan (03/28/2024 10:05 AM MEDICAL PHYSICS RESEARCHER): Severe right lower extremity occlusive disease with wounds complicated by his continued need for chemotherapy for his CML. I had a long discussion with the patient and his again regarding his overall prognosis, I do not think he is any chance of healing these wounds without any revascularization however at this point in time he is not a surgical candidate. We discussed re-evaluation in May, I also discussed the need for possible proximal amputation and encouraged them to discuss this as a family. We will plan for repeat evaluation in May. Assessment & Plan (02/23/2024 10:28 AM CDT): Known severe right lower extremity occlusive disease. He has unfortunately developed a wound due to his uncontrolled edema while on therapy for CML. I again discussed the importance with the patient and his that his current wound is due to uncontrolled edema and weeping through the skin as well as skin breakdown. This is going to get complicated that he has known severe occlusive disease however is not currently a surgical candidate. He is meeting with his oncologist in the 2nd or 3rd week of February to discuss outlook of his therapy. We discussed an order for any revascularization attempts to be completed he would need to be off immunotherapy or chemotherapy. I will discuss with his oncologist and we will plan for repeat evaluation in 1 month. We also discussed a referral to wound care, he is going to see wound care at [facility]. Ultimately he is at high risk for limb loss Assessment & Plan (12/01/2023 8:25 AM CDT): We will hold off on any surgical intervention as he is undergoing chemotherapy. He has significant edema throughout bilateral upper and lower extremities since starting the chemotherapy. I have recommended for years to reach out to his oncologist to be evaluated. We will follow up with me in 3-6 months for repeat evaluation, continue ASA statin therapy. Assessment & Plan (10/28/2023 11:16 AM CDT): Severe multilevel occlusive disease with common femoral profunda femoral disease as well as superficial femoral artery occlusion. As he is undergoing chemotherapy he has currently not a surgical candidate for revascularization, would like to further evaluate in 4-6 weeks. Continue risk factor modification with ASA Eliquis statin therapy. Assessment & Plan (09/22/2023 1:37 PM CDT): Bilateral claudication right worse than left. Lower extremity arterial Doppler ordered. Risks benefits and alternatives to lower extremity angiography with possible intervention discussed, risks including bleeding, infection, perforation, contrast induced nephropathy, dissection, thrombosis, distal embolization need further surgery. He wished proceed. Atrial flutter 2016 Obesity 01/09/2014 Multiple-type hyperlipidemia 10/06/2013 Overview (08/25/2016): MIXED HYPERLIPIDEMIA Assessment & Plan (10/17/2024 9:40 AM CDT): Stable continue Lipitor Assessment & Plan (03/28/2024 10:05 AM MEDICAL PHYSICS RESEARCHER): Stable continue Lipitor Assessment & Plan (02/23/2024 10:29 AM CDT): Stable continue Lipitor Assessment & Plan (12/01/2023 8:25 AM CDT): Stable continue Lipitor 10 mg Assessment & Plan (10/28/2023 11:16 AM CDT): Stable continue Lipitor 10 mg. Assessment & Plan (09/22/2023 1:36 PM CDT): Stable continue Lipitor 10 mg. Benign hypertension 10/06/2013 Overview (08/25/2016): BENIGN HYPERTENSION Assessment & Plan (03/28/2024 10:09 AM MEDICAL PHYSICS RESEARCHER): Stable on metoprolol Assessment & Plan (02/23/2024 10:29 AM CDT): Stable continue metoprolol Atrial fibrillation 10/06/2013 Overview (08/27/2016): ATRIAL FIBRILLATION Essential hypertension 08/08/2012 Assessment & Plan (10/17/2024 9:40 AM CDT): Stable continue metoprolol Assessment & Plan (03/28/2024 10:05 AM MEDICAL PHYSICS RESEARCHER): Stable continue metoprolol Assessment & Plan (12/01/2023 8:25 AM CDT): Stable continue metoprolol 50 mg Assessment & Plan (10/28/2023 11:16 AM CDT): Stable continue metoprolol 50 mg Assessment & Plan (09/22/2023 1:36 PM CDT): Stable continue metoprolol 50 mg. Obstructive sleep apnea syndrome 08/08/2012 Difficulty breathing 09/03/2011 Paroxysmal atrial fibrillation 09/03/2011 Palpitations 09/03/2011 Current Treatment and Therapy Plans No current plan information found. Past Treatment and Therapy Plans No past plan information found. Lifetime Dose Tracking * Chemical Lifetime Dose Automatic Entry Manual Entr y Fluoro Time 1.2 minutes 0 minutes 1.2 minutes Air kerma at the reference point (Ka,r) 266 mGy 0 mGy 266 mGy DAP 13.9 Gy-cm2 0 Gy-cm2 13.9 Gy-cm2
--- OUTSIDE RECORDS SUMMARY | 2025-01-16 14:35 | XMS_ITS | Encounter Summary ---
Author Organization [facility] Address [address] [place] [address] Care Team Providers Care Financial Accounting Analyst Name Role Phone Unavailable Primary Care Provider Unavailabl e Encounter Details Date Type Department Care Team (Late st Contact Info) Description 11/08/2023 Lab Requisition [facility] - Pathology Lab [address] [place] [id number] Misbah Gaffney MD [address] [place] [id number] Chronic myeloid leukemia, BCR/ABL-positive, not having achieved remission Social History Tobacco Use Types Packs/Day Years Used Date Smoking Tobacco: Never Assessed Sex and Gender Information Value Date Recorded Sex Assigned at Not on file 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 Gender Identity Not on file Sexual Orientation Not on file documented as of this encounter Plan of Treatment Not on file documented as of this encounter Procedures Procedure Name Priority Date/Time Associated Diagnosis Comments FLOW CYTOMETRY BONE MARROW Routine 11/08/2023 9:00 AM CDT Chronic myeloid leukemia, BCR/ABL-positive, not having achieved remission (HCC) documented in this encounter Results * FLOW CYTOMETRY BONE MARROW (11/08/2023 9:00 AM CDT) Case Report Flow Cytometry Case: [id number] Authorizing Provider: Misbah Gaffney Collected: 11/08/2023 09:00 AM MD Cristino Ordering Location: [facility] - Received: 11/08/2023 11:46 AM Pathology Lab Pathologist: Yvette Alfonso MD Specimen: Bone Marrow 11/08/2023 2:54 PM CDT [facility] Final Diagnosis Bone marrow, flow cytometric immunophenotypic analysis: - No significant B-cell population or increase in blasts identified - See interpretation 11/08/2023 2:54 PM [facility] at 1454 CDT Flow Cytometry Interpretation Viability: 86% B-cells: no significant population T-cells: no immunophenotypic aberrancy detected with the markers assessed Blasts: significantly less than 1% The majority of cells are maturing myeloid precursors/granulo cytes. A bone marrow aspirate smear prepared from the flow cytometry specimen has been reviewed for quality control microbiologist purposes. 11/08/2023 2:54 PM [facility] Flow Cytometry Results Differential Result Comment Flow Cell Count /uL 365,400 Total Viability % 86.0 Lymphocytes % 1 Dim CD45 Region % 0 Monocytes % 2 Granulocytes % 97 11/08/2023 2:54 PM [facility] Reason for test Chronic myeloid leukemia, BCR/ABL-positive, not having achieved remission (HCC) 205.10 11/08/2023 2:54 PM [facility] Client Specimen ID # [id number] 11/08/2023 2:54 PM [facility] Number of markers 19 were performed. A-2 Flow CD10 A-3 Flow CD13 A-5 Flow CD20 A-11 Flow CD2 A-13 Flow CD14 A-16 Flow CD117 A-17 Flow CD11b A-18 Flow CD11c A-1 Flow CD5 A-4 Flow CD19 A-6 Flow CD33 A-7 Flow CD34 A-8 Flow CD45 A-12 Flow CD7 A-14 Flow CD56 A-15 Flow CD64 A-9 Diomede+CD19+ A-10 Lambda+CD19+ A-19 Flow HLA-DR 11/08/2023 2:54 PM [facility] Pathologist Location at [facility] 11/08/2023 2:54 PM [facility] Disclaimer Test performed at [facility], [address] [place] [address], [id number]. *The established laboratory minimum viability is 70%. Values below the minimum may result in the failure to find an abnormal population of cells. This test was developed and its performance characteristics determined by the Flow Cytometry Laboratory. It has not been cleared by the [place] Food and Drug Administration (FDA). The FDA has determined that such clearance or approval is not necessary. This test is used for clinical purposes. It should not be regarded as investigational or for research. This laboratory is regulated under the Clinical Laboratory Improvement Amendments of 1998 (CLIA) as a qualified to perform high complexity clinical testing. 11/08/2023 2:54 PM CDT [facility] Embedded Images 2:54 PM CDT [facility] Pathology/Cytolo gy BONE MARROW SPECIMEN / Unknown 11/08/2023 9:00 AM CDT 11/08/2023 11:46 AM CDT Misbah Gaffney MD LAB - PATHOLOGY/CYT OLOGY ORDERABLES Final Result [facility] [address] [place] [address], [facility] [phone] documented in this encounter Visit Diagnoses Diagnosis Chronic myeloid leukemia, BCR/ABL-positive, not having achieved remission (HCC) Chronic myeloid leukemia, without mention of having achieved remission documented in this encounter
--- OUTSIDE RECORDS SUMMARY | 2025-01-16 14:35 | XMS_ITS | Encounter Summary ---
Author Organization [facility] Address [address] [facility] [address] Care Team Providers Care Health Administrator Name Role Phone Unavailable Primary Care Provider Unavailabl e Encounter Details Date Type Department Care Team (Late st Contact Info) Description 11/09/2023 Lab Requisition 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 - Received: 11/09/2023 04:25 PM Pathology Lab Pathologist: Yvette Alfonso MD Specimens: A) - Bone Marrow Clot B) - Bone Marrow Core 11/09/2023 5:10 PM CDT [facility] Final Diagnosis Bone marrow, aspirate, clot section, and core biopsy: - Chronic myeloid leukemia, [id number] - See description 11/09/2023 5:10 PM [facility] PATH[facility] at 1710 CDT AP Comment Overall, the bone marrow specimen is hypercellular for age with marked myeloid hyperplasia, along with megakaryocytic hyperplasia. There is reported evidence of a BCR-ABL1 mutation, classifying this as chronic myeloid leukemia. Based on the morphologic features, this appears to be best characterized as in the chronic phase of this disease. Correlation with clinical findings and relevant cytogenetic/molecular testing is required. 11/09/2023 5:10 PM [facility] Bone Marrow Aspirate Differential count (200 cells): 86.5% maturing myeloid precursors, 5.5% erythroid progenitors, 0.5% monocytes, 6.5% eosinophils, and 1% lymphocytes. Specimen quality: adequate. Spicules: present. Trilineage Hematopoiesis: present. Myeloid:Erythroid ratio: 17:1, marked myeloid hyperplasia. Myeloid Maturation: Complete myeloid maturation is present with no increase in blasts. Eosinophils are minimally increased. Erythroid Maturation: Too few to assess morphology. Megakaryocyte morphology: Many small and hypolobate forms are seen. Storage iron (by special stain): decreased. Sideroblastic iron (by special stain): decreased. Control is appropriately reactive. 11/09/2023 5:10 PM [facility] Bone Marrow Core Biopsy and Clot Section Description Specimen quality: The decalcified bone marrow core biopsy is adequate for evaluation. Cellularity: nearly 100%. Trilineage Hematopoiesis: present. Myeloid to Erythroid ratio: increased. Myeloid maturation and localization: increased maturing myeloid precursors are present. Erythroid maturation and localization: too few to adequately assess. Megakaryocyte number: increased. Megakaryocyte distribution: atypical clusters. Lymphoid aggregates: absent. Core biopsy iron (by special stain): decreased. Clot section marrow particles: present. Clot section morphology: similar to core biopsy. Clot section iron (by special stain): decreased. 11/09/2023 5:10 PM [facility] Flow Cytometry Summary Concurrent flow cytometry ([id number]) shows no significant B-cell population or increase in blasts. 11/09/2023 5:10 PM [facility] Clinical History 73 year old man with recent molecular diagnosis of chronic myeloid leukemia, [id number]. 11/09/2023 5:10 PM CDT [facility] Materials Received Received are 17 slides and 2 blocks labeled [id number] along with a copy of the outside pathology report. [place] [address]. All original materials are returned to the referring institution, along with a copy of our final report. 11/09/2023 5:10 PM CDT [facility] Pathologist Location at [facility] 11/09/2023 5:10 PM CDT [facility] Disclaimer The performance characteristics of all immunohistochemical and indirect immunofluorescence stains (if any) cited in this report were determined by the Histopathology Laboratory of [facility]. Some of these tests were developed by our own laboratory and have not been cleared or approved by the US Food and Drug Administration. The FDA does not require this test to go through premarket FDA review. These tests are used for clinical purposes. They should not be regarded as investigational or for research. This laboratory is certified under the Clinical Laboratory Improvement Amendments (CLIA) as qualified to perform high complexity clinical laboratory testing. This case has been personally reviewed and interpreted by the attending (teaching) pathologist. 11/09/2023 5:10 PM CDT [facility] Embedded Images 11/09/2023 5:10 PM CDT [facility] Pathology/Cytology BONE MARROW SPECIMEN / Unknown 11/08/2023 9:00 AM CDT 11/09/2023 4:25 PM CDT Miscellaneous samples (specimen) BONE MARROW SPECIMEN / Unknown 11/08/2023 9:00 AM CDT 11/09/2023 4:25 PM CDT us Misbah Gaffney MD LAB - PATHOLOGY/CYT OLOGY ORDERABLES Final Result [facility] [address] [place] [address], [facility] [phone] documented in this encounter Visit Diagnoses Diagnosis Illness, unspecified documented in this encounter
--- OUTSIDE RECORDS SUMMARY | 2025-01-16 14:35 | XMS_ITS | Encounter Summary ---
Author Organization [facility] Address [address] [place] [address] Phone Care Team Providers Care Sociology Faculty Member Name Role Phone NeemaamyMichela lion Primary Care Provider +1- [phone] Encounter Details Date Type Department Care Team (Late st Contact Info) Description 01/09/2025 Results Follow-Up [facility] Medicine Cardiology [address] [facility] Advanced Medicine 8th [place] [address] [place] [id number] Krista Salas, JANIS [address] [facility] [address] [place], [place] [id number] ECG 12 lead Social History Tobacco Use Types Packs/Day Years Used Date Smoking Tobacco: Every Day Cigarettes Passive Smoke Exposure: Past Smokeless Tobacco: Never Alcohol Use Standard Drinks/Week Comments Yes 0 (1 standard drink = 0.6 oz pur e alcohol) [facility] Utilities Answer Date Recorded In the past 12 months has [employer], gas, oil, or water [employer] threatened to shut off services in your home? No 05/08/2024 Social Connection and Isolation Panel Answer Date Recorded In a typical week, how many times do you talk on the phone with family, friends, or neighbors? More than three times a week 05/08/2024 How often do you get togethe r with friends or relatives? More than three times a week 05/08/2024 How often do you attend [facility] or [facility] services? Never 05/08/2024 Do you belong to any clubs o r organizations such as sikhism groups, unions, fraternal or athletic groups, or school groups? No 05/08/2024 How often do you attend meet ings of the clubs or organizations you belong to? Never 05/08/2024 Are you , , di vorced, , never , or living with a partner? 05/08/2024 AUDIT-C Answer Date Recorded Q1: How often do you have a drink containing alcohol? Never 10/11/2023 Q2: How many drinks containi ng alcohol do you have on a typical day when you are drinking? Patient does not drink Q3: How often do you have si x or more drinks on one occasion? Never 10/11/2023 Overall Financial Resource Strain (CARDIA) Answe r Date Recorded How hard is it for you to pa y for the very basics like food, housing, medical care, and heating? Not hard at all 05/08/2024 Hunger Vital Sign Answer Date Recorded Within the past 12 months, y ou worried that your food would run out before you got the money to buy more. Never true 05/08/20 24 Within the past 12 months, t he food you bought just didn't last and you didn't have money to get more. Never true 05/08/2024 PRAPARE - Transportation Answer Date Re corded In the past 12 months, has l ack of transportation kept you from medical appointments or from getting medications? No 04/22 In the past 12 months, has l ack of transportation kept you from meetings, work, or from getting things needed for daily living? No 05/08/2024 Housing Stability Vital Sign Answer Ej e Recorded In the last 12 months, was t here a time when you were not able to pay the mortgage or rent on time? No 05/08/2024 In the past 12 months, how m any times have you moved where you were living? 0 05/08/2024 At any time in the [facility], were you homeless or living in a senior care (including now)? No 05/08/2024 Personal Safety Answer Date Recorded Have you ever been in or are you currently in a harmful physical or emotional relationship or is someone making you feel afraid or unsafe? 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
--- OUTSIDE RECORDS SUMMARY | 2025-01-16 14:35 | XMS_ITS | Clinical Summary ---
Author Organization [facility] Address [address] [place] [address] Care Team Providers Care System Programmer Name Role Phone Unavailable Primary Care Provider Unavailabl e Source Comments [email or web address],non-owned Affiliates and Associated Physician Practices is amultiple site organization consisting of ambulatory clinics and hospital sitesin [place], [place], [place] and [place]. This disclosure is being madepursuant to the Care Everywhere program and may not contain all information available regarding this patient. 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 Gender Identity Not on file Sexual Orientation Not on file Plan of Treatment Health Maintenance Due Date Last Done Comments HEPATITIS C SCREENING 01/22/1966 DTAP/TDAP/TD VACCINES (1 - Tdap) 01/26/1967 PNEUMOCOCCAL VACCINE 50+ (1 of 1 - PCV) 01/26/1998 ZOSTER VACCINE (1 of 2) 01/26/1998 Respiratory Syncytial Virus (RSV) Vaccine Pt: or over 60 yrs (1 - 1-dose 75+ series) 01/26/2023 COVID-19 VACCINE ( - 2023-2 5 season) 2024 DEPRESSION SCREENING 05/23/2024 INFLUENZA VACCINE (#1) 2025 HEPATITIS B VACCINE Aged Out No longe r eligible based on patient's age to complete this topic HIB VACCINE Aged Out No longer eligi ble based on patient's age to complete this topic HPV VACCINE Aged Out No longer eligi ble based on patient's age to complete this topic MENINGOCOCCAL (Group B) VACC INE SHARED DECISION-MAKING Aged Out No longer eligibl e based on patient's age to complete this topic MENINGOCOCCAL GROUPS A/C/Y/W VACCINE Aged Out No longer eligible b ased on patient's age to complete this topic Insurance * Guarantor: BENJAMIN SPARKS Account Type Relation to Patient Date of Phone Billing Address Personal/Family [address] [place] [address] [place] [address] [employer] SELF PAY NO INSURANCE Member Subscriber Plan / Payer (Ef fective for All Dates) Name:Benjamin Sparks Member ID:Not on file Relation to Subscriber:Not on file Name:BENJAMIN SPARKS Subscriber ID:Not on file Address: [address] [place] [address] [place] [address] Payer ID:Not on file Group ID:Not on file Type:Self Pay Address: [place], [place] * Guarantor: BENJAMIN SPARKS Account Type Relation to Patient Date of Phone Billing Address Personal/Family [address] [place] [address] [place] [address] [employer] SELF PAY NO INSURANCE Member Subscriber Plan / Payer (Ef fective for All Dates) Name:Benjamin Sparks Member ID:Not on file Relation to Subscriber:Not on file Name:BENJAMIN SPARKS Subscriber ID:Not on file Address: [address] [place] [address] [place] [address] Payer ID:Not on file Group ID:Not on file Type:Self Pay Address: [place], [place] * Guarantor: BENJAMIN SPARKS Account Type Relation to Patient Date of Phone Billing Address Personal/Family [address] [place] [address] [place] [address] [employer] [facility] [place] [place] Address: [facility] [id number] [place] [address] SELF PAY NO INSURANCE Member Subscriber Plan / Payer (Ef fective for All Dates) Name:Benjamin Sparks Member ID:Not on file Relation to Subscriber:Not on file Name:BENJAMIN SPARKS Subscriber ID:Not on file Address: [address] [place] [address] [place] [address] Payer ID:Not on file Group ID:Not on file Type:Self Pay Address: [place], [place]
--- OUTSIDE RECORDS SUMMARY | 2025-01-16 14:35 | XMS_ITS | Clinical Summary ---
Author Organization [facility] Address [address] [place] [address] Care Team Providers Care Facility Administrator Name Role Phone NeemaamyMichela lion Primary Care Provider [phone] Allergies No known active allergies Medications doxazosin (CARDURA) 4 mg tablet daily. Active omega 4-wza-cqb-fish oil 300-1,000 mg capsule daily. Active atorvastatin (LIPITOR) 10 mg tablet Take 1 tablet (10 mg total) by mouth daily Active cholecalciferol (VITAMIN D-3) 2,000 unit tablet daily. Active ndsifylo-jws-HY -lycopen-lutein 0.4 mg-300 mcg- 250 mcg tabletIndicatio ns:Vitamin Deficiency Prevention daily. Active SITagliptin phosphate (JANUVIA) 50 mg tabletIndicatio ns:type 2 diabetes mellitus Take 0.5 tablets (25 mg total) by mouth daily Active potassium chloride ER 20 mEq CR tablet Take 1 tablet (20 mEq total) by mouth 2 (two) times a day 4 Active Saccharomyces boulardii (FLORASTOR) 250 mg capsule Take by mouth Activ e torsemide (DEMADEX) 20 mg tablet Take 2 tablets (40 mg total) by mouth daily 60 tablet 4 Active Additional Information Patient not taking.Reported on 01/09/2025 spironolactone (ALDACTONE) 25 mg tablet Take 1 tablet (25 mg total) by mouth daily 30 tablet 4 Active Additional Information Patient not taking.Reported on 01/09/2025 gabapentin (NEURONTIN) 100 mg capsuleIndicati ons:Neuropathic Pain Take 1 capsule (100 mg total) by mouth nightly Active acetaminophen (TYLENOL) 325 mg tablet Take 2 tablets (650 mg total) by mouth every 6 (six) hours as needed for pain, headaches or fever 4 Active nicotine (NICODERM CQ) [address] 1 patch on the skin daily 4 Active Additional Information Patient not taking.Reported on 01/09/2025 oxyCODONE (ROXICODONE) 5 mg immediate release tabletIndicatio ns:Pain Take 1 tablet (5 mg total) by mouth every 8 (eight) hours as needed for pain (Severe pain only) 4 Active Additional Information Patient not taking.Reported on 01/09/2025 polyethylene glycol (MIRALAX) 17 gram/dose bulk powderIndicatio ns:constipation Take 17 g by mouth daily 4 Active traMADoL (ULTRAM) 50 mg tablet Take 1 tablet (50 mg total) by mouth every 6 (six) hours as needed for pain 4 Active apixaban (Eliquis) 5 mg tablet Take 1 tablet (5 mg total) by mouth 2 (two) times a day 60 tablet 11 4 Active bosutinib (BOSULIF) 400 mg tablet Take 1 tablet (400 mg total) by mouth daily 4 Active metoprolol tartrate (LOPRESSOR) 50 mg immediate release tablet Take 1 tablet (50 mg total) by mouth 2 (two) times a day 180 tablet 1 5 Active Active Problems Problem Noted Date Diagnosed Date [...] & Plan (08/03/2024 10:18 AM CDT): Right ljugg-zas-egxk amputation site has completely healed. Left lower [...] extremity. Assessment & Plan (07/09/2024 10:15 AM FISH ROE PROCESSOR): Status post right above-knee amputation. 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 He is often on uneven terrain natural to golf course fair ways [employer] and slips. He has a strong desire [...] prosthesis. Assessment & Plan (03/28/2024 10:05 AM FISH ROE PROCESSOR): Severe right lower extremity occlusive disease with [...] is going to see wound care at [facility]. Ultimately he is at high risk for [...] Lipitor Assessment & Plan (03/28/2024 10:05 AM FISH ROE PROCESSOR): Stable continue Lipitor Assessment & Plan (02/23/2024 10:29 AM CDT): Stable continue Lipitor Assessment & Plan (12/01/2023 8:25 AM CDT): Stable continue Lipitor 10 mg Assessment & Plan (10/28/2023 11:16 AM CDT): Stable continue Lipitor 10 mg. Assessment & Plan (09/22/2023 1:36 PM CDT): Stable continue Lipitor 10 mg. Benign hypertension 10/06/2013 Overview (08/25/2016): BENIGN HYPERTENSION Assessment & Plan (03/28/2024 10:09 AM FISH ROE PROCESSOR): Stable on metoprolol Assessment & Plan (02/23/2024 10:29 AM CDT): Stable continue metoprolol Atrial fibrillation 10/06/2013 Overview (08/27/2016): ATRIAL FIBRILLATION Essential hypertension 08/08/2012 Assessment & Plan (10/17/2024 9:40 AM CDT): Stable continue metoprolol Assessment & Plan (03/28/2024 10:05 AM FISH ROE PROCESSOR): Stable continue metoprolol Assessment & Plan (12/01/2023 8:25 AM CDT): Stable continue metoprolol 50 mg Assessment & Plan (10/28/2023 11:16 AM CDT): Stable continue metoprolol 50 mg Assessment & Plan (09/22/2023 1:36 PM CDT): Stable continue metoprolol 50 mg. Obstructive sleep apnea syndrome 08/08/2012 Difficulty breathing 09/03/2011 Paroxysmal atrial fibrillation 09/03/2011 Palpitations 09/03/2011 Encounters Date Type Department Care Team Description 01/09/2025 1:45 PM CDT Office Visit [facility] Medicine Cardiology [address] [place] [address] [place] [address] Krista Salas NP Typical atrial flutter (HCC) (Primary Dx); CML (chronic myeloid leukemia) 01/09/2025 Results Follow-Up [facility] Medicine Cardiology [address] [place] [address] [place] [address] Krista Salas NP ECG 12 lead 10/17/2024 8:45 AM CDT Office Visit [facility] at [address] [place] [address] Derrek Paz MD Peripheral vascular disease (Primary Dx); Essential hypertension; Multiple-type hyperlipidemia 10/17/2024 Orders Only [facility] at [address] [place] [address] Derrek Paz MD Peripheral vascular disease (Primary Dx) from Last 3 Months Surgical History Surgery Date Site/Laterality Comments OTHER SURGICAL HISTORY 1967 ankle break CHOLECYSTECTOMY 1987 Cholecystectomy OTHER SURGICAL HISTORY : R. knee menicus - torn no OR Medical History Medical History Date Comments Hypertension Hx Other Medical allergies- envi ronmental Atrial fibrillation (HCC) Atrial flutter (HCC) Smoking Hyperlipidemia Diabetes (HCC) CML (chronic myelocytic leukemia) Obstructive sleep apnea Peripheral arterial disease Family History Medical History Relation Name Comments Cancer Brother Alex cancer; Cause o f : cancer Other Father bad valve; Ca use of : bad valve Diabetes Other 1 Family history of Diabetes mellitus; Heart disease Other 2 Family history of Heart disease; Hypertension Other 3 Family history of Hypertension; Relation Name Status Comments Brother Alex (Age 65) Father (Age 72) Other 1 Other 2 Other 3 Social History Tobacco Use Types Packs/Day Years Used Date Smoking Tobacco: Every Day Cigarettes Passive Smoke Exposure: Past Smokeless Tobacco: Never Tobacco Cessation:Ready to Q uit: No; Counseling Given: Yes Alcohol Use Standard Drinks/Week Comments Yes 0 (1 standard drink = 0.6 oz pur e alcohol) [facility] Utilities Answer Date Recorded In the past 12 months has e [employer], gas, oil, or water [employer] threatened to shut off services in your [...] week 05/08/2024 How often do you attend chur ch or confucianist services? Never 05/08/2024 Do you belong to any clubs o r organizations such as yazidi groups, unions, fraternal or athletic groups, or [...] any time in the past 12 m [facility], were you homeless or living in a skilled nursing (including now)? No 05/08/2024 Personal Safety Answer Date Recorded Have you ever been in or are you currently in a harmful physical or emotional relationship or is someone making you feel afraid or unsafe? Denies 05/07/2024 Sex and Gender Information Value Date Recorded Sex Assigned at Not on file Legal Sex Male 8:51 AM FISH ROE PROCESSOR Gender Identity Male 10/25/2023 2:34 PM CDT Sexual Orientation Choose not to disclose 2023 2:34 PM CDT Obstetrics History Last Filed Vital Signs Vital Sign Reading Time Taken Comments Blood Pressure 130/73 01/09/2025 1:57 PM CDT Pulse 77 01/09/2025 1:57 PM CDT Temperature 36.8 C (98.2 F) 05/14/2024 7:45 AM FISH ROE PROCESSOR Respiratory Rate 18 05/14/2024 7:45 AM FISH ROE PROCESSOR Oxygen Saturation 95% 01/09/2025 1:57 PM CDT Inhaled Oxygen Concentration - - Weight 67.1 kg (148 lb) 01/09/2025 1:57 PM CDT Height 177.8 cm (5' 10) 01/09/2025 1:57 PM CDT Body Mass Index 21.24 01/09/2025 1:57 PM CDT Plan of Treatment Health Maintenance Due Date Last Done Comments Depression Screening 1950 Hepatitis C Screening 1950 Hepatitis B Screening 01/26/1966 Zoster Vaccine (1 of 2) 11/11/2009 09/16/2009 Well Visit 65+ 01/26/2013 Covid-19 Vaccine (4 - 2023-2 5 season) 2024 04/13/2021, 08/13/2020, 07/23/2020 Influenza Vaccine (#1) 2025 , 03/01/2022, 03/16/2021, Additional history exists Fall Risk Assessment 05/14/2025 05/14/2024 DTaP/Tdap/Td Vaccine (2 - Td or Tdap) 07/08/2031 07/08/2021 Pneumococcal vaccine 65+ Completed 05/05/2015, 03/24 Abdominal Aortic Aneurysm (A AA) Screen Completed 05/07/2024 Procedures Procedure Name Priority Date/Time Associated Diagnosis Comments ECG 12-LEAD Routine 01/09/2025 2:02 PM CDT CML (chronic myeloid leukemia) CTA ABDOMINAL AORTA AND BILATERAL ILIOFEMORAL RUNOFF ED 05/07/2024 5:35 PM FISH ROE PROCESSOR from Last 3 Months or Most Recently Relevant to Health Maintenance Results * ECG 12 lead (01/09/2025 2:02 PM CDT) us Krista Salas BIOMETRICS CONSULTANT ECG ORDERABLES Edited R esult - Final * CTA Abdominal Aorta And Bilateral Iliofemoral Runoff (05/07/2024 5:35 PM FISH ROE PROCESSOR) Anatomical Region Laterality Modality Body Bilateral Computed Tomogra phy 05/07/2024 6:16 PM FISH ROE PROCESSOR Narrative 05/07/2024 6:34 PM FISH ROE PROCESSOR EXAM DESCRIPTION: CTA ABDOMINAL AORTA AND BILATERAL ILIOFEMORAL RUNOFF REASON FOR STUDY: Acute limb ischemia, leg, Arterial embolism, lower extremity C/o bilateral leg wounds and today he was at the wound clinic and they told him to come here to get evaluated for a tendon exposed on the right lower extremity. Pt states he has 95% occlusion in both legs yet they are not addressing that due to pt having Leukemia on chemo pills. Pt arrives with wounds covered and sleeves on them. TECHNIQUE: CTA of the abdominal aorta with bilateral lower extremity runoff was performed without and with intravenous contrast using helical scanning technique. Precontrast and arterial images were obtained of the lower extremities. Images reviewed with soft tissue and bone windows. Reconstructed coronal and sagittal MPR images reviewed. All images stored on PACS. 3D MIP images rendered on scanning unit and reviewed at time of interpretation. Automated exposure control was used as a dose optimization technique for this examination. CONTRAST TYPE/DOSE: 100mL of IOVERSOL 350 MG IODINE/ML INTRAVENOUS SYRINGE injected via intravenous COMPARISON: None FINDINGS: VASCULAR: Included pulmonary arteries are clear in the lung bases. Descending thoracic aorta normal in caliber with moderate atherosclerotic plaque. No high-grade stenosis is seen regarding the major abdominal branches. Aortic caliber in the aorta within normal limits. Iliac arteries normal in caliber with moderate diffuse plaque. Zpgx-gn-lekgwhnu focal stenosis of the left distal external iliac artery around image 230/931. Moderate diffuse atherosclerotic plaque and narrowing of the left SFA. Questionable high-grade stenosis image 329/931 in the mid proximal thigh. No other high-grade stenosis is seen. Calf arteries are patent. Right superficial femoral artery is occluded near its origin. Right distal popliteal artery is reconstituted from branches of the deep femoral artery. Calf arteries are patent. LOWER CHEST: Right middle lobe atelectasis partially seen. Lung bases otherwise clear. Heart size normal. LIVER/BILIARY: Mildly cirrhotic liver contour. Biliary tree normal in caliber. GALLBLADDER: Absent. SPLEEN: Normal. PANCREAS: Normal. ADRENAL GLANDS: Mild hypertrophy. KIDNEYS/URINARY TRACT: Unremarkable. GI: Stomach and small bowel appear normal. Extensive noninflamed sigmoid and descending diverticulosis. Other scattered noninflamed diverticula. Normal appendix. OTHER ABDOMINAL/PELVIS: No enlarged lymph node or free fluid. MSK: Mmef-rv-gddratuj degenerative change in the spine. BODY WALL: Mild diffuse subcutaneous swelling in the lower legs. IMPRESSION: Right superficial femoral artery is occluded near its origin. The distal popliteal artery is reconstituted from branches of the deep femoral artery. Questionable high-grade stenosis in the mid proximal left SFA. No other high-grade stenosis is seen. Chronic findings as above. THIS IS AN ELECTRONICALLY VERIFIED FINAL REPORT 05/07/2024 6:34 PM - Electronically signed by Diogo LE T: Report ID: [id number] Reading Location: [id number] Procedure Note Diogo Graham MD - 05/07/2024 EXAM DESCRIPTION: CTA ABDOMINAL AORTA AND BILATERAL ILIOFEMORAL RUNOFF REASON FOR STUDY: Acute limb ischemia, leg, Arterial embolism, lower extremity C/o bilateral leg wounds and today he was at the wound clinic and theytold him to come here to get evaluated for a tendon exposed on the right lower extremity. Pt states he has 95% occlusion in both legs yet they are not addressing that due to pt having Leukemia on chemo pills. Pt arriveswith wounds covered and sleeves on them. TECHNIQUE: CTA of the abdominal aorta with bilateral lower extremityrunoff was performed without and with intravenous contrast using helicalscanning technique. Precontrast and arterial images were obtained of the lower extremities. Images reviewed with soft tissue and bone windows. Reconstructed coronal and sagittal MPR images reviewed. All images storedon PACS. 3D MIP images rendered on scanning unit and reviewed at time of interpretation. Automated exposure control was used as a doseoptimization technique for this examination. CONTRAST TYPE/DOSE: 100mL of IOVERSOL 350 MG IODINE/ML INTRAVENOUSSYRINGE injected via intravenous COMPARISON: None FINDINGS: VASCULAR: Included pulmonary arteries are clear in the lung bases. Descending thoracic aorta normal in caliber with moderate atherosclerotic plaque. No high-grade stenosis is seen regarding the major abdominal branches. Aortic caliber in the aorta within normal limits. Iliacarteries normal in caliber with moderate diffuse plaque. Mhax-hg-kxkcnkao focal stenosis of the left distal external iliac artery around image 230/931. Moderate diffuse atherosclerotic plaque and narrowing of the left SFA. Questionable high-grade stenosis image 329/931 in the mid proximal thigh.No other high-grade stenosis is seen. Calf arteries are patent. Right superficial femoral artery is occluded near its origin. Right distal popliteal artery is reconstituted from branches of the deep femoralartery. Calf arteries are patent. LOWER CHEST: Right middle lobe atelectasis partially seen. Lung bases otherwise clear. Heart size normal. LIVER/BILIARY: Mildly cirrhotic liver contour. Biliary tree normal in caliber. GALLBLADDER: Absent. SPLEEN: Normal. PANCREAS: Normal. ADRENAL GLANDS: Mild hypertrophy. KIDNEYS/URINARY TRACT: Unremarkable. GI: Stomach and small bowel appear normal. Extensive noninflamed sigmoidand descending diverticulosis. Other scattered noninflamed diverticula.Normal appendix. OTHER ABDOMINAL/PELVIS: No enlarged lymph node or free fluid. MSK: Iqwl-ua-jlrjfuzu degenerative change in the spine. BODY WALL: Mild diffuse subcutaneous swelling in the lower legs. IMPRESSION: Right superficial femoral artery is occluded near its origin. The distal popliteal artery is reconstituted from branches of the deep femoralartery. Questionable high-grade stenosis in the mid proximal left SFA. No other high-grade stenosis is seen. Chronic findings as above. THIS IS AN ELECTRONICALLY VERIFIED FINAL REPORT 05/07/2024 6:34 PM - Electronically signed by Diogo LE T: Report ID: [id number] Reading Location: [place] [address] PROCEDURES Final Resu lt from Last 3 Months or Most Recently Relevant to Health Maintenance [place] [address] [facility] [id number] [place] [address] [facility] [id number] [place] [address] Advance Directives For more information, please contact: [phone] * Full Code (Latest Code Status on File) Date Activated Date Inactivated Comments 05/08/2024 1:04 AM 05/14/2024 9:09 PM * Full Code Date Activated Date Inactivated Comments 10/11/2023 3:28 PM 10/11/2023 11:26 PM Care Teams Facility Administrator Relationship Specialty Start Date End Date Michela Rosa DO [address] [place] [address] [place] [address] PCP - General Family Medicine 09/28/23
== END 2025-01-16 14:26 | disposition home or self-care (01) ==
LOC: ANHCARD 14:29
PROVIDERS: PCP Family Medicine; Visit Provider Family Medicine
DX: I48.0 Paroxysmal atrial fibrillation (principal); I15.1 Hypertension secondary to other renal disorders; N28.89 Other specified disorders of kidney and ureter; I45.10 Unspecified right bundle-branch block
CPT/HCPCS: 93005

== ENCOUNTER 2025-02-18 08:00 | Outpatient (RCR) | payer MEDICARE, OTHER, SELFPAY ==
--- NOTE | 2025-02-19 15:21 | OPREHPOC ---
Outpatient Therapy Plan of Care This is a Multidisciplinary Plan of Care that may contain components documented by all disciplines (PT, OT, and ST.) PT Problem 1 PT Problem #1 Knowledge Deficit PT Goal 1 Goal / Goal Update * independent with HEP 02-18-25 d/c goal met Target Visit 25 Progress Met PT Problem 2 PT Problem #2 Impaired Functional Mobility PT Goal 1 Goal / Goal Update increase functional mobility and balance for pt to return to community ambulation and previous activity level: 1* 2 minute walking test distance of 200' 2* Tinetti balance score of 3* sit/stand transfer with use of 1 UE x 5 reps 4* pt up/down 12 steps with one hand railing, independent 5* pt report wearing his prosthesis 6 hours at time 02-18-25 d/c goal 4& 5 met #1- 120' with wheeled walker; #2 09/17; #3 use of both UE Target Visit 25 Progress Partially Met PT Problem 3 PT Problem #3 Impaired Gait PT Goal 1 Goal / Goal Update * ambulate with jamshid cane independent on level surfaces 02-18-25 d/c goal met Target Visit 25
--- NOTE | 2025-02-19 15:21 | PTOPDC ---
Assessment and note entered by Stacey Victoria, PT Assessment Status Discharge Subjective Information doing better, able to go up his stairs at home over the weekend 9x- use cane and one railing; have not had any falls; am wearing the prosthesis 2 &1/2 to 6 &1/2 hours/day; have been trying to put it on first thing when wake up and start walking; uses the wheel chair in the house; use the wheeled walker and hemicane at home, with the straight cane on the stairs, due to hemicane too big for the house stairs; just getting over a sinus infection, still having some SOB; this morning is tired before starting therapy-- down the stairs and getting here. Going to stop therapy for now and keep up with the walking and exercises at home. Reported Pain Level Pain Score Self Report Additional Pain Score Comments no pain at start of session, with walking pain in back and L leg cramps: 07/30; Assessment PT Clinical Summary Luis has received a total of 25 PT sessions. Compared to the last assessment: LE functional scale from 45 to 35% limitation in activity level; wearing time reported is about the same: 2-6 hours; continues to use the w/c for mobility, sometimes even when he has his prosthesis on; there is no skin irritation or issues from the prosthesis; 2 minute walking test distance: with the wheeled walker from 240' to 120' and with the jamshid cane, same at 40; maximum walking distance with wheeled walker 300' to 210' and with hemicane is same at 40'; Tinetti balance score from 18 to 14/28; sit/stand transfer from the w/c with use of both UE to 1 UE use for 5 reps; on 12 stairs is using one hand railing and a cane at home, for his stairs at home. Education completed for HEP. He is to continue working at home on standing posture, weight shift onto R prosthesis and increase endurance for walking and prosthetic wearing time. The goals were partially met. Discharge PT. Plan of Care PT Services Indicated No
== END 2025-02-20 10:04 | disposition home or self-care (01) ==
LOC: ANHPT 08:00
PROVIDERS: PCP Family Medicine; Visit Provider Family Medicine
DX: Z47.81 Encounter for orthopedic aftercare following surgical amputation (principal); L97.519 Non-pressure chronic ulcer of other part of right foot with unspecified severity; I73.9 Peripheral vascular disease, unspecified; R53.1 Weakness; R26.9 Unspecified abnormalities of gait and mobility; Z44 Encounter for fitting and adjustment of external prosthetic device; Z89.611 Acquired absence of right leg above knee
CPT/HCPCS: 97110; 97116; 97530

== ENCOUNTER 2025-03-29 09:40 | Outpatient (CLI) | payer MEDICARE, SELFPAY ==
--- NOTE | ~2025-03-29 | XR_ITS ---
EXAMINATION: XR chest 2V, 03/29/2025 9:47 [employer] HISTORY: cough x months, CML hx,current smoker, patient missing 1 leg COMPARISON: No comparisons available. Technique: 2 views obtained. Findings: Right middle lobe infiltrate No pneumothorax. Heart is normal size. Mediastinal and hilar contours are within normal limits. Bony thorax no acute abnormality. Impression: Right middle lobe pneumonia Reviewed, dictated and finalized at location P. [facility]ANGER Impression: Right middle lobe pneumonia
== END 2025-03-29 09:41 | disposition home or self-care (01) ==
LOC: GOSHIMG 09:40
PROVIDERS: PCP Family Medicine; Visit Provider Family Medicine
DX: R05.9 Cough, unspecified (principal)
CPT/HCPCS: 71046

== ENCOUNTER 2025-04-08 14:44 | Outpatient (CLI) | payer MEDICARE, SELFPAY ==
--- NOTE | ~2025-04-08 | CT_ITS ---
EXAMINATION:CT diagnostic chest wo con DATE: 04/08/2025 15:15 INDICATION: Cough TECHNIQUE: Computed tomography (CT) of the chest was performed without intravenous contrast. The dose-length product (DLP) was 210.23 mGy-cm. COMPARISON: August 29, 2023 FINDINGS: A 1.6 x 1.5 x 1.4 cm right upper lobe mass image 73 series 4 has developed. There is also almost complete collapse of the right middle lobe with some air bronchograms present. Subtle lymphadenopathy in the right hilar region in this location may be present. 8 and 7 mm nodules are seen in the right lower lobe image 77 and 83 of series 4. 10 mm spiculated nodule left lower lobe image 98 series 4. Small scattered nodules are noted elsewhere also in the lower lobes. No consolidation effusion or pneumothorax. Moderately severe diffuse centrilobular emphysematous changes. No evidence of metastatic disease bones. Heart and great vessels normal size. No acute process seen in the upper abdomen. Cholecystectomy clips. IMPRESSION: Findings suspicious for metastatic disease with the largest mass measuring 1.7 cm in the basal portion of the right upper lobe. There are numerous nodules in both lower lobes, fever in the upper lobes. Post obstructive atelectasis suspected in the right middle lobe; there could be pneumonia or aspiration with air bronchograms present. Suggest correlation with PET/CT. Reviewed, dictated and finalized at location A. [facility] IMPRESSION: Findings suspicious for metastatic disease with the largest mass m easuring 1.7 cm in the basal portion of the right upper lobe. There are numerou s nodules in both lower lobes, fever in the upper lobes. Post obstructive atele ctasis suspected in the right middle lobe; there could be pneumonia or aspirati on with air bronchograms present. Suggest correlation with PET/CT.
== END 2025-04-08 14:45 | disposition home or self-care (01) ==
PROVIDERS: PCP Family Medicine; Visit Provider Family Medicine
DX: R05.9 Cough, unspecified (principal); R91.8 Other nonspecific abnormal finding of lung field
CPT/HCPCS: 71250